=== PATIENT | male | born 1935 | race Caucasian/White ===

== ENCOUNTER 2016-07-16 22:07 | Inpatient (IN) ==
[2016-07-16] MEDS ORDERED: 0.9 % Sodium Chloride 1,000 ML IVC ONE ×2 (22:28→23:44)
[2016-07-16 22:39] LABS: Eosinophils % 0.3 %; Hemoglobin 13.3 g/dL (12.9-16.9); Immature Granulocytes % 0.7 % (0-4); Immature Platelets 4.6 % (1.1-6.1); Lymphocytes # 0.1 K/mcL (0.6-4.6); Lymphocytes % 4.8 %; Mean Corpuscular HGB Conc 33.3 g/dL (31.6-35.5); Mean Corpuscular Hemoglobin 32.4 pg (28.0-33.3); Mean Corpuscular Volume 97.3 fL (83.0-100.0); Mean Platelet Volume 10.6 fL (9.4-12.4); Monocytes % 0.3 %; Nucleated Red Blood Cells 0.7 /100 WBC (0); Red Blood Count 4.11 M/mcL (4.19-5.50); Red Cell Distribution Width 14.6 % (11.5-14.5); Segmented Neutrophils % 93.9 %
[2016-07-16 22:50] LABS: Calcium 8.5 mg/dL (8.6-10.8); Potassium 3.7 mEq/L (3.5-4.5)
[2016-07-16 23:12] LABS: Neutrophils # 2.7 K/mcL (1.6-8.9)
[2016-07-16 23:13] LABS: Large Platelets Present (Not Present); Platelet Count 77 K/mcL (140-400); Reactive Lymphocytes Present (Not Present)
[2016-07-17] MEDS ORDERED: Aspirin 81 MG TAB.CHEW PO STA (00:20)
[2016-07-17 01:51] LABS: Bilirubin,Urine Small (Negative); Blood,Urine Large (Negative); Clarity,Urine Turbid (Clear); Color,Urine Dark Yellow (Yellow); Glucose,Urine (UA) Normal (Normal); Ketones,Urine Negative (Negative); Leukocyte Esterase,Urine Large (Negative); Nitrite,Urine Negative (Negative); PH,Urine 5.5 pH Units (5.0-8.0); Protein,Urine 100 mg/dL (Neg-Trace); Specific Gravity,Urine 1.015 (1.010-1.025); Urobilinogen,Urine Normal (Normal)
[2016-07-17 01:54] LABS: Bacteria,Urine Many per hpf (None-Few); Hyaline Casts,Urine None Seen per lpf (None-Few); Squamous Epithelial Cell,Urine Many per lpf (None-Few); WBC,Urine TNTC per hpf (0-3)
[2016-07-17 02:06] LABS: RBC,Urine 15-30 per hpf (0-3)
[2016-07-17 02:07] LABS: Transitional Epi Cells,Urine Few per hpf (None-Few); Yeast,Urine Few per hpf (None Seen)
[2016-07-17] MEDS ORDERED: Levofloxacin 750 MG/150 ML 750 MG/150 ML BAG IVPB ONE (02:14)
--- NOTE | 2016-07-17 02:18 | Emergency Department Note ---
Disposition Clinical Impression: Pre-syncope Urinary tract infection Qualifiers: Urinary tract infection type: acute cystitis Hematuria presence: without hematuria Qualified Code(s): N30.00 - Acute cystitis without hematuria Hypotension Qualifiers: Hypotension type: other hypotension type Qualified Code(s): I95.89 - Other hypotension Disposition: Admitted As Inpatient Condition: Fair Referrals: Ish Scherer DO [Primary Care Provider] - Forms: ED Satisfaction Letter Weakness HPI - General Chief complaint: ED Nausea/Vomiting/Diarrhea Stated complaint: Weakness/N/V Source: patient, family, EMS Mode of arrival: private vehicle Limitations: no limitations Nursing Notes Reviewed: Yes Vital Signs Reviewed: Yes - History of Present Illness HPI Narrative: Patient is a 80-year-old male comes today for acute onset of generalized weakness. He states he is doing well today about 4 hours ago he felt very weak he fell little fluttering in his chest and felt like he wanted to pass out. He states he had some generalized achiness and chills. He also states he has had some increased dysuria and frequency. Duration: constant Location: generalized Pain Scale: 0 Associated symptoms: Reports: dysuria, fever/chills. Denies: chest pain, confusion, dark stools, diaphoresis, loss of appetite, rash - Related Data Allergies Allergy/AdvReac Type Severity Reaction Status Date / Time Penicillins [PCN] Allergy Hives Verified 03/28/15 10:27 All systems ED: reviewed and negative except as stated. Constitutional: Reports: chills, weakness. Denies: fever Gastrointestinal: Denies: abdominal pain, nausea Genitourinary: Reports: urgency, dysuria, frequency Past Medical History - Past Medical History Source: patient, old records reviewed, obtained from family, nursing notes reviewed Medical history: Reports: cancer, hyperlipidemia, hypertension, renal disease Surgical history: Reports: cancer surgery Psychiatric history: Reports: no psych history - Social History Smoking Status: Former smoker Smokeless Tobacco Status: No Alcohol use: Reports: none Drug use: Reports: none Physical Exam - General Limitations: no limitations General appearance: alert, in no apparent distress - Head Head exam: atraumatic, normocephalic, normal inspection - Eye Eye exam: Present: normal appearance, PERRL, EOMI - Expanded Eye Exam Pupils: Left: reactive - ENT ENT exam: normal exam, normal oropharynx, mucous membranes moist - Expanded ENT Exam External ear exam: Present: normal external inspection Mouth exam: Present: normal external inspection Teeth exam: Present: normal inspection Throat exam: Present: normal inspection - Neck Neck exam: Present: normal inspection, full ROM, trachea midline - Chest Chest inspection: Present: normal inspection, symmetric chest wall rise - Respiratory Respiratory exam: Present: normal lung sounds bilaterally - Cardiovascular Cardiovascular exam: Present: regular rate, normal rhythm, normal heart sounds - Abdominal Exam Abdominal exam: Present: soft, Non-Tender. Absent: tenderness, distention, guarding, rebound, rigidity - Extremities Exam Extremities exam: Present: normal inspection, full ROM. Absent: tenderness, pedal edema - Expanded Upper Extremity Exam Shoulder exam: Present: normal inspection, full ROM Arm exam: Present: normal inspection, full ROM Elbow exam: Present: normal inspection, full ROM Forearm/Wrist exam: Present: normal inspection, full ROM Hand exam: Present: normal inspection, full ROM Vascular exam: Normal: capillary refill, radial pulse - Expanded Lower Extremity Exam Hip/Pelvis exam: Present: normal inspection, full ROM Upper leg exam: Present: normal inspection, full ROM Knee exam: Present: normal inspection, full ROM Lower leg exam: Present: normal inspection, full ROM Ankle exam: Present: normal inspection, full ROM Foot/toe exam: Present: normal inspection, full ROM Neurovascular/Tendon exam: Absent: motor deficit, sensory deficit, tendon deficit - Back Exam Back exam: Present: normal inspection, full ROM. Absent: tenderness - Neurological Exam Neurological exam: Present: alert, oriented X3 - Expanded Neurological Exam Patient oriented to: Present: person, place, time Coma Scale Eye Opening: Spontaneous Coma Scale Motor Response: Obeys Commands Coma Scale Verbal Response: Oriented Coma Scale Total: 15 - Psychiatric Psychiatric exam: Present: normal affect, normal mood - Skin Skin exam: Present: warm, dry, intact, normal color Course Vital Signs Temperature 97.9 F 07/16/16 22:11 Pulse Rate 90 07/16/16 22:11 Respiratory Rate 16 07/16/16 22:11 Blood Pressure 134/67 07/16/16 22:11 O2 Sat by Pulse Oximetry 95 07/16/16 22:11 Temperature 97.9 F 07/16/16 22:11 Pulse Rate 83 07/17/16 01:17 Respiratory Rate 20 07/17/16 01:17 Blood Pressure 90/58 07/17/16 01:17 O2 Sat by Pulse Oximetry 90 L 07/17/16 01:17 Oxygen Delivery Oxygen Delivery Room Air Weakness - Differential Diagnosis Differential Diagnosis: Likely: acute myocardial infarction, hypoglycemia, rhabdomyolysis, sepsis/infection, dehydration, medication effect, metabolic - Medical Records Medical records reviewed: Yes I reviewed the patient's medical records. - Lab Data Lab results reviewed: Yes I reviewed the patient's lab results. Result diagrams: 07/16/16 22:32 07/16/16 22:32 Lab Results 07/16/16 07/16/16 07/16/16 Range/Units 22:32 22:32 22:32 WBC 2.9 L (4.3-11.1) K/mcL RBC 4.11 L (4.19-5.50) M/mcL Hgb 13.3 (12.9-16.9) g/dL Hct 40.0 (37.5-50.1) % MCV 97.3 (83.0-100.0) fL MCH 32.4 (28.0-33.3) pg MCHC 33.3 (31.6-35.5) g/dL RDW 14.6 H (11.5-14.5) % Plt Count 77 L (140-400) K/mcL MPV 10.6 (9.4-12.4) fL Immature Gran % 0.7 (0-4) % Seg Neutrophils % 93.9 % Lymphocytes % 4.8 % Monocytes % 0.3 % Eosinophils % 0.3 % Basophils % 0.0 % Neutrophils # 2.7 (1.6-8.9) K/mcL Lymphocytes # 0.1 L (0.6-4.6) K/mcL Monocytes # 0.0 (0.0-1.3) K/mcL Eosinophils # 0.0 (0.0-0.6) K/mcL Basophils # 0.0 (0.0-0.2) K/mcL Nucleated RBCs/100 WBC 0.7 H (0) /100 WBC Reactive Lymphocytes Present A (Not Present) Large Platelets Present A (Not Present) Immature Plt Fraction 4.6 (1.1-6.1) % Sodium 139 (136-145) mEq/L Potassium 3.7 (3.5-4.5) mEq/L Chloride 108 (98-109) mEq/L Carbon Dioxide 20 (19-29) mEq/L BUN 26 (8-26) mg/dL Creatinine 1.60 H (0.72-1.25) mg/dL Est GFR ( Amer) 51 L (> 60) Est GFR (Non-Af Amer) 42 L (> 60) BUN/Creatinine Ratio 16 (6-26) Glucose 116 H (70-99) mg/dL Calculated Osmolality 294 (280-300) Calcium 8.5 L (8.6-10.8) mg/dL Troponin I 0.04 H* (0-0.03) ng/mL Urine Color (Yellow) Urine Clarity (Clear) Urine pH (5.0-8.0) pH Units Ur Specific Ponder (1.010-1.025) Urine Protein (Neg-Trace) mg/dL Urine Glucose (UA) (Normal) mg/dL Urine Ketones (Negative) mg/dL Urine Blood (Negative) Urine Nitrite (Negative) Urine Bilirubin (Negative) Urine Urobilinogen (Normal) mg/dL Ur Leukocyte Esterase (Negative) Urine Microscopic RBC (0-3) per hpf Urine Microscopic WBC (0-3) per hpf Ur Squamous Epith Cells (None-Few) per lpf Ur Transition Epith Cell (None-Few) per hpf Urine Bacteria (None-Few) per hpf Hyaline Casts (None-Few) per lpf Urine Yeast (None Seen) per hpf Ur Culture Indicated? (NO) 07/17/16 07/17/16 Range/Units 01:10 01:40 WBC (4.3-11.1) K/mcL RBC (4.19-5.50) M/mcL Hgb (12.9-16.9) g/dL Hct (37.5-50.1) % MCV (83.0-100.0) fL MCH (28.0-33.3) pg MCHC (31.6-35.5) g/dL RDW (11.5-14.5) % Plt Count (140-400) K/mcL MPV (9.4-12.4) fL Immature Gran % (0-4) % Seg Neutrophils % % Lymphocytes % % Monocytes % % Eosinophils % % Basophils % % Neutrophils # (1.6-8.9) K/mcL Lymphocytes # (0.6-4.6) K/mcL Monocytes # (0.0-1.3) K/mcL Eosinophils # (0.0-0.6) K/mcL Basophils # (0.0-0.2) K/mcL Nucleated RBCs/100 WBC (0) /100 WBC Reactive Lymphocytes (Not Present) Large Platelets (Not Present) Immature Plt Fraction (1.1-6.1) % Sodium (136-145) mEq/L Potassium (3.5-4.5) mEq/L Chloride (98-109) mEq/L Carbon Dioxide (19-29) mEq/L BUN (8-26) mg/dL Creatinine (0.72-1.25) mg/dL Est GFR ( Amer) (> 60) Est GFR (Non-Af Amer) (> 60) BUN/Creatinine Ratio (6-26) Glucose (70-99) mg/dL Calculated Osmolality (280-300) Calcium (8.6-10.8) mg/dL Troponin I 0.06 H* (0-0.03) ng/mL Urine Color Dark Yellow (Yellow) Urine Clarity Turbid A (Clear) Urine pH 5.5 (5.0-8.0) pH Units Ur Specific Ponder 1.015 (1.010-1.025) Urine Protein 100 H (Neg-Trace) mg/dL Urine Glucose (UA) Normal (Normal) mg/dL Urine Ketones Negative (Negative) mg/dL Urine Blood Large H (Negative) Urine Nitrite Negative (Negative) Urine Bilirubin Small H (Negative) Urine Urobilinogen Normal (Normal) mg/dL Ur Leukocyte Esterase Large H (Negative) Urine Microscopic RBC 15-30 H (0-3) per hpf Urine Microscopic WBC TNTC H (0-3) per hpf Ur Squamous Epith Cells Many H (None-Few) per lpf Ur Transition Epith Cell Few (None-Few) per hpf Urine Bacteria Many H (None-Few) per hpf Hyaline Casts None Seen (None-Few) per lpf Urine Yeast Few H (None Seen) per hpf Ur Culture Indicated? YES A (NO) - Radiology Data Radiology results reviewed: Yes I reviewed the patient's radiology results. - EKG Data EKG shows normal: sinus rhythm Rate: normal Rhythm: NSR Interpretation: nonspecific ST-T wave changes
[2016-07-17] MEDS ORDERED: 0.9 % Sodium Chloride 1,000 ML IVC ONE ×2 (02:28→08:07)
[2016-07-17] MEDS ORDERED: Meropenem 500 MG in 0.9 % Sodium Chloride Mini Bag 100 ML IVPB STA (02:30)
--- NOTE | 2016-07-17 03:21 | Internal Med History&Physical ---
<Max Flanagan - Last Filed: 07/17/16 04:36> Date of Encounter: 07/17/16 Time of Encounter: 03:20 Assessment and Plan (1) Sepsis Current visit: Yes Status: Acute Patient had BP 90s/50s, WBC of 2.9, lactate of 2.3, urine positive for leukocyte esterase and many bacteria. Source of infection likely from UTI. Patient had one episode of burning with urination today. He denies abdominal pain, flank pain upon physical exam. CXR showed no acute abnormalities. Influenza swab negative DuoNeb q6HR PRN for wheezing Meropenem 500mg Q8HR IVF 125 ml/hr Trend lactate blood cultures x2 pending urine culture pending Qualifiers: Sepsis type: sepsis due to unspecified organism Qualified Code(s): A41.9 - Sepsis, unspecified organism (2) Urinary tract infection Current visit: Yes Status: Acute plan as above Qualifiers: Urinary tract infection type: site unspecified Hematuria presence: without hematuria Qualified Code(s): N39.0 - Urinary tract infection, site not specified (3) JOSEY (acute kidney injury) Current visit: Yes Status: Acute Patient's Creatinine was 1.6, his baseline is around 1. Etiology likely due to sepsis. Continue with IVF Avoid nephrotoxic agents. (4) CKD (chronic kidney disease), stage III Current visit: Yes Status: Chronic Patient has CKD III by history. Continue to monitor. (5) Hyperlipidemia Current visit: Yes Status: Chronic re start lipitor once home med list is confirmed with pharmacy Qualifiers: Hyperlipidemia type: unspecified Qualified Code(s): E78.5 - Hyperlipidemia , unspecified (6) History of colon cancer Current visit: Yes Status: Acute (7) Hypotension Current visit: Yes Status: Acute IVF, hold atenolol. Qualifiers: Hypotension type: other hypotension type Qualified Code(s): I95.89 - Other hypotension (8) Elevated troponin Current visit: Yes Status: Acute likely demand in setting of sepsis- patient denies any chest pain. Trend as needed. (9) DVT prophylaxis Current visit: Yes Status: Acute EPCDs Internal Medicine - H&P: HPI Chief complaint: weakness and chills. Admitted From: Home Plans for Post Hospital Care: Home History of present illness: PCP: Dr. Scherer Mr. Cedeno is a 80 year old male with PMHx of CKD III, HLD, history of colon cancer-status post bowel resection, HTN, COPD, osteoarthritis. Patient came to the ED with son and with chief complaint of chill and weakness that started around 2:30 pm this afternoon. He also stated that he felt extremely weak and couldn't get up out of his chair. He had one episode of non bloody emesis with dry heaving. He denies any recent sick contacts, denies recent travel history. He has a baseline productive cough with mucousy phlegm production. He has not noticed increased sputum production recently. He denies any flank or back pain, denies being nauseous currently, denies chest pain. Social Hx: lives athome with his . He used to smoke for about 46 years, 1PPD. He quit smoking in 2001. He denies alcohol and illicit drug use. Family Hx: his brother had stomach cancer, mother had breast cancer. Past Med Surg Social Fam HX - Past Medical History Medical history: cancer, hyperlipidemia, hypertension, renal disease Psychiatric history: no psych history - Past Surgical History Surgical History: cancer surgery - Social History Smoking Status: Former smoker Smokeless Tobacco Status: No Alcohol use: none Drug use: none Internal Medicine - H&P: Meds Atenolol 07/17/16 [History] Flomax 07/17/16 [History] Lipitor 07/17/16 [History] Allergies Penicillins [PCN] Allergy (Verified 03/28/15 10:27) Hives All Systems PM: A 10-system review of systems was performed and is negative for pertinent findings except as documented above in the HPI. - Constitutional Constitutional: chills, weakness, no fever(s) - EENT Eyes: no blurry vision - Cardiovascular Cardiovascular ROS IM: no chest pain, no syncope - Respiratory Respiratory: cough, no hemoptysis - Gastrointestinal Gastrointestinal: vomiting, no abdominal pain, no hematemesis, no hematochezia, no melena - Genitourinary Genitourinary ROS male: dysuria, urinary incontinence, urinary urgency, no hematuria - Neurological Neurological ROS: weakness, no abnormal movements - Constitutional Vitals: Temp Pulse Resp BP Pulse Ox 97.9 F 80 16 86/53 93 L 07/16/16 22:11 07/17/16 02:24 07/17/16 02:24 07/17/16 02:24 07/17/16 02:24 General appearance: Present: A&O X 3, pleasant, no acute distress, answers questions appropriately - Head Head exam: Present: atraumatic, normocephalic - Respiratory Respiratory exam: Present: rales, rhonchi, wheezes (expiratory wheezing noted. decreased breath sounds on lower lobe bilaterally.) - Cardiovascular Cardiovascular exam: Present: distant heart sounds - GI/Abdominal GI/Abdominal exam: Present: firm, normal bowel sounds. Absent: tenderness Additional comments: scar from bowel resection noted on midline of abdomen. - Extremities Exam Extremities exam: Absent: cyanotic, pedal edema - Neurological Exam Neurological exam: Present: alert, oriented X3, no focal deficits - Psychiatric Psychiatric exam: Present: normal affect, normal mood. Absent: agitated, anxious Internal Med - H&P Results - Labs CBC & Chem 7: 07/16/16 22:32 07/16/16 22:32 <Favian Arana - Last Filed: 07/17/16 05:18> Date of Encounter: 07/17/16 Internal Medicine - H&P: HPI History of present illness: Mr. Cedneo is a 80 year old male All Systems PM: A 10-system review of systems was performed and is negative for pertinent findings except as documented above in the HPI. - Constitutional Vitals: Temp Pulse Resp BP Pulse Ox 98.0 F 80 17 95/53 90 L 07/17/16 04:28 07/17/16 04:28 07/17/16 04:28 07/17/16 04:28 07/17/16 04:28 Internal Med - H&P Results - Labs CBC & Chem 7: 07/16/16 22:32 07/16/16 22:32 - Attending Attestation I examined this patient and my medical decision-making was reviewed with the INSIDE SALES DIRECTOR/PA/Advanced Practice Nurse/Resident Physician. I agree with the documented findings, disposition and treatment plan as described except to the extent set forth below. I have personally evaluated the pt and discussed the details with the Rinkman/ resident. 80 Y/M presented with chills, weakness, increased urinary frequency. cough with discolored sputum. some shortness of breath. Abnormal UA. Normal CXR. Hypotensive. Had 3 litres of normal saline bolus in the ER and is on normal saline infusion. Urine and blood cultures pending. Pt apparently has allergies to penicillin, with questionable allergy to cefalosporins. Pt was given meropenem in the ER - continue meropenem 500 mg Q8H. Monitor lactate and BP. Dx: Severe sepsis / septic shock; UTI; acute on chronic renal failure
[2016-07-17] MEDS ORDERED: Naloxone 0.4 MG/ML INJ IVP PRN (03:44)
[2016-07-17] MEDS ORDERED: Ondansetron 4 MG/2 ML VIAL IVP PRN (03:44)
[2016-07-17] MEDS ORDERED: Acetaminophen 325 MG TABLET PO PRN (03:44)
[2016-07-17] MEDS ORDERED: 0.9 % Sodium Chloride w KCl 20 MEQ/1,000 ML MLS IVC SCH (03:47)
[2016-07-17] MEDS ORDERED: 0.9 % Sodium Chloride 500 ML IVC ONE (04:59)
[2016-07-17 06:18] LABS: Basophils % 0.1 %; Lymphocytes % 2.2 %
[2016-07-17 06:20] LABS: Hematocrit 34.5 % (37.5-50.1); Hemoglobin 11.3 g/dL (12.9-16.9); Immature Platelets 6.8 % (1.1-6.1); Lymphocytes # 0.4 K/mcL (0.6-4.6); Mean Corpuscular HGB Conc 32.8 g/dL (31.6-35.5); Mean Corpuscular Hemoglobin 32.1 pg (28.0-33.3); Mean Platelet Volume 10.3 fL (9.4-12.4); Monocytes # 0.8 K/mcL (0.0-1.3); Neutrophils # 15.3 K/mcL (1.6-8.9); Red Blood Count 3.52 M/mcL (4.19-5.50); Segmented Neutrophils % 91.7 %
[2016-07-17 06:33] LABS: Calcium 7.8 mg/dL (8.6-10.8); Potassium 4.1 mEq/L (3.5-4.5)
[2016-07-17 06:41] LABS: Platelet Count 76 K/mcL (140-400)
[2016-07-17 06:42] LABS: Reactive Lymphocytes Present (Not Present)
[2016-07-17] MEDS ORDERED: *HR* Heparin 5,000 UNIT/ML VIAL SQ SCH (07:00)
[2016-07-17] MEDS ORDERED: 0.9 % Sodium Chloride 1,000 ML IVC SCH (07:45)
[2016-07-17] MEDS ORDERED: Lidocaine -MPF 1% 5 ML AMPUL INFILT ONE (08:03)
--- NOTE | 2016-07-17 08:14 | Internal Med Progress Note ---
Date of Encounter: 07/17/16 Time of Encounter: 07:35 - Assessment and plan (1) Severe sepsis Current Visit: Yes Status: Acute Assessment and plan: Secondary to UTI Patient now with leukocytois, still low blood pressures, 87/46 at time of review but with MAP of 60 No tachycardia(however, patient was on atenolol) s/p 3.5 L IVF Severe sepsis with JOSEY on CKD, lactic acidosis and troponin elevation CXR is clear Source of sepsis for now is Complicated UTI, suspected pyelonephritis On Meropenem (due to penicillin allergy and severity of sepsis), continue same Continue IVF hydration, give another 1L stat, then continue maintenance at 150cc /hr Place Feng catheter Strict intake/output monitoring PICC line, for ease of hydration and possible need for pressors Follow blood and urine cultures Low threshold to start pressors Obtain Abdomen and Pelvis CT stat without contrast Obtain ECHO to assess EF Patient is high risk for decompensation to septic shock and multi-organ failure He is full code (2) Gram negative sepsis Current Visit: Yes Status: Acute (3) Urinary tract infection Current Visit: Yes Status: Acute Assessment and plan: As above, follow blood and urine cultures Qualifiers: Urinary tract infection type: site unspecified Hematuria presence: without hematuria Qualified Code(s): N39.0 - Urinary tract infection, site not specified (4) Lactic acidosis Current Visit: Yes Status: Acute Assessment and plan: Improving (5) Acute kidney injury superimposed on CKD Current Visit: Yes Status: Acute Assessment and plan: Patient with hx of CKD III, BPH now with JOSEY on CKD Avoid nephrotoxins IVF hydration Follow renal imaging (6) BPH (benign prostatic hyperplasia) Current Visit: Yes Status: Chronic Assessment and plan: Hold Tamsulosin for now, may restart when BP is better Qualifiers: Prostatic enlargement morphology: unspecified morphology Lower urinary tract symptom presence: presence of symptoms unspecified Qualified Code(s): N40.0 - Benign prostatic hyperplasia without lower urinary tract symptoms (7) Hyperlipidemia Current Visit: Yes Status: Chronic Assessment and plan: Resume statin Qualifiers: Hyperlipidemia type: unspecified Qualified Code(s): E78.5 - Hyperlipidemia , unspecified - Subjective Interval history: 80 Y/O M with PMH of HTN, BPH, HLD Admitted for management of severe sepsis secondary to acute pyelonephritis, JOSEY , Lactic acidosis He is seen at bedside Reports feeling "just tired" He was in his usual state of health till two days prior to presentation when he developed rigors, chills, urinary frequency and dysuria He also reported mild dry cough - Constitutional Vitals: Temp Pulse Resp BP Pulse Ox 97.5 F L 65 22 87/46 95 07/17/16 07:34 07/17/16 07:34 07/17/16 07:34 07/17/16 07:34 07/17/16 07:34 General appearance: Present: A&O X 3, pleasant, no acute distress, answers questions appropriately - Head Head exam: Present: atraumatic, normocephalic Additional comments: Right lower lip melanotic spot(patient states its a birthmark) - Eye Eye exam: Present: PERRL, conjuntiva pink, sclera anicteric Pupils: Present: PERRL - ENT ENT exam: Present: mucous membranes dry - Neck Neck exam general surgery: Present: supple, trachea midline. Absent: lymphadenopathy - Respiratory Respiratory exam: Present: CTAB. Absent: rales, rhonchi, wheezes, tachypnea - Cardiovascular Cardiovascular exam: Present: RRR, +S1, +S2. Absent: diastolic murmur, gallop, rubs, systolic murmur - GI/Abdominal GI/Abdominal exam: Present: normal bowel sounds, soft, no peritoneal signs. Absent: distended, tenderness - Extremities Exam Extremities exam: Present: warm, radial pulses palpable and symetrical. Absent : calf tenderness, cyanotic, pedal edema - Back Exam Back exam: Present: normal inspection. Absent: CVA tenderness (L), CVA tenderness (R) - Neurological Exam Neurological exam: Present: CN II-XII intact, oriented X3, no focal deficits. Absent: pronater drift, facial droop, speech deficit - Skin Skin exam: Present: dry, intact Internal Medicine: Result - Labs CBC & Chem 7: 07/17/16 06:06 07/17/16 06:06 Labs: Short CBC 07/17/16 Range/Units 06:06 WBC 16.7 H D (4.3-11.1) K/mcL Hgb 11.3 L D (12.9-16.9) g/dL Hct 34.5 L (37.5-50.1) % Plt Count 76 L (140-400) K/mcL Neutrophils # 15.3 H (1.6-8.9) K/mcL BMP 07/17/16 06:06 Sodium 139 Potassium 4.1 Chloride 111 H Carbon Dioxide 18 L BUN 30 H Creatinine 2.39 H Glucose 149 H Calcium 7.8 L Consult Discharge Plan - Plan Referrals: Ish Scherer DO [Primary Care Provider] -
[2016-07-17] MEDS: Ipratropium/Albuterol Neb 3 ML IH PRN (10:30)
[2016-07-17] MEDS: Meropenem 500 MG in 0.9 % Sodium Chloride Mini Bag 100 ML IVPB SCH ×2 (11:45→19:35)
[2016-07-17 15:28] LABS: Acinetobacter baumannii by PCR Not Detected (Not Detect); Candida albicans by PCR Not Detected (Not Detect); Candida glabrata by PCR Not Detected (Not Detect); Candida krusei by PCR Not Detected (Not Detect); Candida parapsilosis by PCR Not Detected (Not Detect); Candida tropicalis by PCR Not Detected (Not Detect); Enterococcus by PCR Not Detected (Not Detect); Escherichia coli by PCR ***DETECTED*** (Not Detect); Klebsiella oxytoca by PCR Not Detected (Not Detect); Klebsiella pneumoniae by PCR Not Detected (Not Detect); Pseudomonas aeruginosa by PCR Not Detected (Not Detect); Serratia marcescens by PCR Not Detected (Not Detect); Staphylococcus aureus by PCR Not Detected (Not Detect); Streptococcus agalactiae(B)PCR Not Detected (Not Detect); Streptococcus by PCR Not Detected (Not Detect); Streptococcus pneumoniae PCR Not Detected (Not Detect); Streptococcus pyogenes (A) PCR Not Detected (Not Detect); blaKPC Carbapenem-Resist Gene Not Detected (Not Detect)
--- NOTE | 2016-07-17 16:14 | Electrocardiograph Report ---
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
[2016-07-17] MEDS: 0.9 % Sodium Chloride 1,000 ML IVC SCH (17:15)
[2016-07-18] MEDS: Meropenem 500 MG in 0.9 % Sodium Chloride Mini Bag 100 ML IVPB SCH (05:17)
[2016-07-18 05:52] LABS: Hematocrit 32.1 % (37.5-50.1); Hemoglobin 10.6 g/dL (12.9-16.9); Mean Corpuscular Hemoglobin 32.9 pg (28.0-33.3); Mean Corpuscular Volume 99.7 fL (83.0-100.0); Mean Platelet Volume 11.8 fL (9.4-12.4); Red Blood Count 3.22 M/mcL (4.19-5.50); Red Cell Distribution Width 15.3 % (11.5-14.5)
[2016-07-18 05:54] LABS: Albumin 2.4 g/dL (3.5-5.0); Albumin/Globulin Ratio 0.8 (1.1-2.2); Calcium 7.2 mg/dL (8.6-10.8); Globulin 2.9 g/dL (2.4-3.5); Potassium 4.4 mEq/L (3.5-4.5); Total Protein 5.3 g/dL (6.0-8.3)
[2016-07-18 05:57] LABS: Platelet Count 66 K/mcL (140-400)
[2016-07-18 07:04] LABS: Lymphocytes # 3.1 K/mcL (0.6-4.6); Monocytes # 2.6 K/mcL (0.0-1.3); Neutrophils # 20.1 K/mcL (1.6-8.9); Platelet Estimate Decreased (Normal)
[2016-07-18] MEDS ORDERED: 0.9 % Sodium Chloride 1,000 ML IVC ONE (08:02)
[2016-07-18] MEDS: 0.9 % Sodium Chloride 1,000 ML IVC SCH (08:08)
--- NOTE | 2016-07-18 08:24 | Nephrology Consult Note ---
Date of Encounter: 07/18/16 Time of Encounter: 08:22 Assessment and Plan (1) Acute kidney injury superimposed on CKD Current Visit: Yes Status: Acute The patient has acute kidney injury superimposed on stage III chronic kidney disease in the setting of gram-negative rods urinary tract infection and sepsis with bacteremia. He presented with hypotension. I would continue the IV fluids as well as appropriate antibiotics. I was expecting his renal function to start to improve within the next 1-2 days. We will initiate an evaluation for his underlying chronic kidney disease while he is here in the hospital. (2) Gram negative sepsis Current Visit: Yes Status: Acute (3) History of colon cancer Current Visit: Yes Status: Acute (4) Hypotension Current Visit: Yes Status: Acute Qualifiers: Hypotension type: other hypotension type Qualified Code(s): I95.89 - Other hypotension (5) BPH (benign prostatic hyperplasia) Current Visit: Yes Status: Chronic Qualifiers: Prostatic enlargement morphology: unspecified morphology Lower urinary tract symptom presence: presence of symptoms unspecified Qualified Code(s): N40.0 - Benign prostatic hyperplasia without lower urinary tract symptoms History of Present Illness - History of Present Illness This is an 80-year-old male who presented to emergency room with complaints of chills and weakness and one or 2 episodes of dysuria. Patient is noted to be hypotensive and febrile. His urinalysis suggested a urinary tract infection. Blood pressure was recorded as 83/48. He was noted to have an elevation in his serum creatinine. He subsequently admitted to the hospital. Urine culture and blood cultures are growing gram-negative rods. He is currently on antibiotics. He received IV fluids. His blood pressure is improved. Feng catheter is currently in place. Patient does have a history of BPH and sees Dr. Palmer annually. Patient says he has frequent urination at home he is not sure if he completely empties his bladder or not. Renal ultrasound here in the hospital showed normal size kidneys and no evidence of hydronephrosis. The patient reports that he recently was told that he has stage III chronic kidney disease. Review of previous lab values shows a baseline creatinine of 1.3-1.4. Today his creatinine has continued to increase and currently is up to 2.45. Past Med Surg Social Fam HX - Past Medical History Medical history: cancer, hyperlipidemia, hypertension, renal disease Psychiatric history: no psych history - Past Surgical History Surgical History: cancer surgery - Social History Smoking Status: Former smoker Smokeless Tobacco Status: No Alcohol use: none Drug use: none Medications and Allergies Atenolol [Tenormin] 50 mg PO DAILY 07/17/16 [History] Atorvastatin [Lipitor] 10 mg PO HS 07/17/16 [History] Tamsulosin HCl [Flomax] 0.4 mg PO DAILY 07/17/16 [History] Allergies Penicillins [PCN] Allergy (Verified 07/17/16 07:28) Hives Review of Systems Constitutional: as per HPI, fever(s), weakness Eyes: bilateral: blurred vision (patient denies), diplopia (patient denies) Nose, mouth and throat: no dizziness, no headache(s) Cardiovascular: dyspnea on exertion Respiratory: dyspnea on exertion, wheezing Gastrointestinal: no abdominal pain, no change in bowel habits Genitourinary Male: difficulty urinating, dysuria Musculoskeletal: no muscle weakness, no numbness Integumentary: no hirsutism, no striae Neurological: as per HPI Psychiatric: no depression, no difficulty concentrating Endocrine: as per HPI Hematologic/Lymphatic: no easy bruising, no lymphadenopathy Exam - Vital Signs Vital signs: Initial Vital Signs Temp Pulse Resp BP Pulse Ox 97.9 F 90 16 134/67 95 07/16/16 22:11 07/16/16 22:11 07/16/16 22:11 07/16/16 22:11 07/16/16 22:11 Vital Signs - Last 8 Hours Temp Pulse Resp BP Pulse Ox 07/18/16 07:32 98.2 F 69 20 128/51 95 Intake and Output 07/17/16 07/18/16 07/18/16 23:59 07:59 15:59 Intake Total 200 / 200 1100 / 1100 Output Total 300 / 300 Balance -100 / -100 1100 / 1100 Intake: IV Fluids 100 / 100 1100 / 1100 0.9 % Sodium Chloride 1, 1000 / 1000 000 ML @ 100 mls/hr IVC . Q10H [facility] Rx#:[id number] Merrem 500 MG In 0.9 % 100 / 100 100 / 100 Sodium Chloride (Mini-Bag +) 100 ML @ 200 mls/hr IVPB Q8H [facility] Rx#: [id number] Oral 100 / 100 Output: Catheter 300 / 300 Other: Meal Dinner Percent of Meal Consumed 85% - General Appearance Exam: Patient is alert and oriented. He is in no acute distress. Neck is supple. Lungs exhibit bilateral expiratory wheezing. Heart regular rate and rhythm. Abdomen shows normal bowel sounds abrasion masses or megaly or tenderness. Extremities show no peripheral edema. A Feng catheter is in place. He is receiving maintenance IV fluids as well as a fluid bolus currently. Results - Lab Results 07/18/16 05:24 07/18/16 05:24 Most recent lab results Calcium 7.2 mg/dL (8.6-10.8) L 07/18/16 05:24 Consult Discharge Plan - Plan Referrals: Ish Scherer DO [Primary Care Provider] -
--- NOTE | 2016-07-18 09:12 | Internal Med Progress Note ---
Date of Encounter: 07/18/16 Time of Encounter: 09:00 - Assessment and plan (1) Severe sepsis Current Visit: Yes Status: Acute Assessment and plan: Secondary to acute pyelonephritis, gram negative septicemia Patient with leukocytois, blood pressure has improved No tachycardia(however, patient was on atenolol) Severe sepsis with JOSEY on CKD Lactate is ow normal CXR is clear Source of sepsis for now is Complicated UTI, suspected pyelonephritis On Meropenem (due to penicillin allergy and severity of sepsis), continue same Continue IVF hydration, give another 1L stat, then continue maintenance at 100cc /hr Strict intake/output monitoring Follow blood and urine cultures Abd CT with bilateral nephrolithiasis, pyelonephritis, renal cysts, BPH, no abscesses Follow ECHO Patient is high risk for decompensation to septic shock and multi-organ failure He is full code (2) Gram negative sepsis Current Visit: Yes Status: Acute Assessment and plan: As above (3) Urinary tract infection Current Visit: Yes Status: Acute Assessment and plan: As above, follow blood and urine cultures Qualifiers: Urinary tract infection type: site unspecified Hematuria presence: without hematuria Qualified Code(s): N39.0 - Urinary tract infection, site not specified (4) Lactic acidosis Current Visit: Yes Status: Acute Assessment and plan: Improving (5) Acute kidney injury superimposed on CKD Current Visit: Yes Status: Acute Assessment and plan: Patient with hx of CKD III, BPH now with JOSEY on CKD Avoid nephrotoxins Renal consult Continue IVF (6) BPH (benign prostatic hyperplasia) Current Visit: Yes Status: Chronic Assessment and plan: Hold Tamsulosin for now, may restart when BP is better Qualifiers: Prostatic enlargement morphology: unspecified morphology Lower urinary tract symptom presence: presence of symptoms unspecified Qualified Code(s): N40.0 - Benign prostatic hyperplasia without lower urinary tract symptoms (7) Hyperlipidemia Current Visit: Yes Status: Chronic Assessment and plan: Resume statin Qualifiers: Hyperlipidemia type: unspecified Qualified Code(s): E78.5 - Hyperlipidemia , unspecified - Subjective Interval history: 80 Y/O M with PMH of HTN, BPH, HLD Admitted for management of severe sepsis secondary to acute pyelonephritis, JOSEY , Lactic acidosis He is seen at bedside He has no new complains Labs reviewed showed worsening leukocytosis and renal function Patient has been afebrile and his BP has improved I have consulted nephrology for his JOSEY on CKD I will give an additional bolus today ECHO has been done, report is pending Observe respiratory status closely for fluid overload Strict intake/output monitoring - Constitutional Vitals: Temp Pulse Resp BP Pulse Ox 98.2 F 69 20 128/51 95 07/18/16 07:32 07/18/16 07:32 07/18/16 07:32 07/18/16 07:32 07/18/16 08:17 General appearance: Present: A&O X 3, pleasant, no acute distress, answers questions appropriately - Head Head exam: Present: atraumatic Additional comments: right upper lip melonocytic lesion-per patient, its his maday and hasn't changed in years - Eye Eye exam: Present: PERRL, conjuntiva pink, sclera anicteric - ENT ENT exam: Present: mucous membranes moist - Neck Neck exam general surgery: Present: supple, trachea midline. Absent: lymphadenopathy - Respiratory Respiratory exam: Present: CTAB. Absent: accessory muscle use, rales, rhonchi, wheezes - Cardiovascular Cardiovascular exam: Present: RRR, +S1, +S2. Absent: diastolic murmur, gallop, rubs, systolic murmur - GI/Abdominal GI/Abdominal exam: Present: normal bowel sounds, soft, no peritoneal signs. Absent: distended, tenderness - Additional comments: Feng catheter now draining clear urine - Extremities Exam Extremities exam: Present: warm, radial pulses palpable and symetrical. Absent : calf tenderness, cyanotic, pedal edema - Neurological Exam Neurological exam: Present: CN II-XII intact, oriented X3, no focal deficits. Absent: pronater drift, facial droop, speech deficit - Skin Skin exam: Present: dry, intact Internal Medicine: Result - Labs CBC & Chem 7: 07/18/16 05:24 07/18/16 05:24 Labs: Short CBC 07/18/16 Range/Units 05:24 WBC 25.7 H D (4.3-11.1) K/mcL Hgb 10.6 L (12.9-16.9) g/dL Hct 32.1 L (37.5-50.1) % Plt Count 66 L (140-400) K/mcL Neutrophils # 20.1 H (1.6-8.9) K/mcL BMP 07/18/16 05:24 Sodium 142 Potassium 4.4 Chloride 113 H Carbon Dioxide 20 BUN 45 H D Creatinine 2.45 H Glucose 90 Calcium 7.2 L Liver Function 07/18/16 Range/Units 05:24 Total Bilirubin 1.0 (0.2-1.2) mg/dL AST 70 H (5-34) Units/L ALT 92 H (0-55) Units/L Alkaline Phosphatase 81 (38-126) Units/L Albumin 2.4 L (3.5-5.0) g/dL - Impressions Impressions Abdomen/Pelvis CT 07/17/16 07:56 IMPRESSION: 1. Bilateral nephrolithiasis. No ureteral stones or hydronephrosis 2. Perivesical stranding suggests cystitis. Bilateral perinephric stranding may indicate pyelonephritis 3. Bilateral renal cysts 4. Colonic diverticulosis. Status post rectosigmoid resection 5. 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 Prostatic enlargement 7. Cholelithiasis D/ / Nima Logan MD / Nima Logan MD Interpreting Provider: Nima Logan MD Retroperitoneum Ultrasound 07/17/16 14:00 IMPRESSION: Bilateral nephrolithiasis. The hyperdense right renal cyst is imaged at 2.9 cm. Otherwise unremarkable bilateral renal ultrasound. Decompression of the urinary bladder by Feng catheter limits evaluation. D/ / 07/17/2016 16:03:37 Ronny Weber MD / bcarter Interpreting Provider: Ronny Weber MD - VTE Documentation of Mechanical Device: Intermittent pneumatic compression device Consult Discharge Plan - Plan Referrals: Ish Scherer DO [Primary Care Provider] -
[2016-07-18] MEDS ORDERED: Ipratropium/Albuterol Neb 3 ML IH ONE (09:25)
--- NOTE | 2016-07-18 10:12 | ECHO - Doppler Report ---
Echocardiogram Name: Angel Cedeno Date of Study: 07/17/2016 Date: 1935 Ht: 74.0 in Medical Record#: [id number] Age: 80 Wt: 229.0 lb Gender: Male BSA: 2.3 Order #: [id number] Location: [facility] Room #: [id number] Reading Physician: Shay Garces MD, [facility] Package Lift Operator: Juli Blake RDCS Ordering Physician: Deniz Lim MD Primary Physician: Diane Scherer DO Indications: Assess EF, Sepsis Impressions: Technically sub-optimal due to clinical status (patient supine, unable to properly position for the exam). Normal left ventricular size and systolic function, LVEF 55%. Normal right ventricular size and function. No significant valvular dysfunction. No evidence of pulmonary hypertension. Left Ventricular Wall Motion: Rest Echo Findings All wall segments showed normal motion. Findings: Study Quality * Technically sub-optimal due to clinical status (patient supine, unable to properly position for the exam). ECG Findings * Normal sinus rhythm. Left Ventricle * Normal left ventricular size and systolic function, LVEF 55%. * Normal LV wall thickness. * Indeterminate diastolic function. Right Ventricle * Normal right ventricular size and function. Left Atrium * Normal left atrial size. Right Atrium * Normal right atrial size. Aorta * Normally sized aortic root. Pericardium * The pericardium appears normal. IVC * The IVC is mildly dilated. Aortic Valve * Aortic valve not well visualized. Appears moderately calcified. * No aortic stenosis. * No aortic regurgitation. Mitral Valve * Normal mitral valve structure. * No mitral stenosis. * Trace mitral regurgitation. Tricuspid Valve * Tricuspid valve not well visualized. * No tricuspid stenosis. * Trace tricuspid regurgitation. * No evidence of pulmonary hypertension. Pulmonic Valve * Pulmonic valve not well visualized. * No pulmonic stenosis. * No pulmonic regurgitation. History Hypertension Hypercholesteremia Measurements: BP: 120/ 66 2D Normal Values RVIDd: 3.73 cm IVSd: .75 cm 0.6 - 1.0 cm LVIDd: 5.48 cm 3.7 - 5.6 cm LVPWd: .95 cm 0.6 - 1.1 cm LVIDs: 3.85 cm 1.5 - 3.6 cm AO: 3.60 cm < 4.0 cm %FS: 29.70 cm >25 % LA volume: 62 Mitral Valve Peak E:.88 m/sec Peak A:.83 m/sec E/A Ratio:1.1 Tricuspid Valve TV Regurg Peak Grad: 14.00mmHg TV Regurg Peak Waylon: 1.87m/sec Updated by Shay Garces MD, [facility] on 07/18/2016 10:05:56 AM electronically signed on 07/18/2016 10:07:41 AM with status of Final Wall Motion [place]: 1=Normal, 2=Hypokinesis, 3=Akinesis, 4=Dyskinesis, 5=Aneurysmal, 6=Hyperkinetic, X=Not Visualized (Blank)=Missing
[2016-07-18] MEDS: Meropenem 1,000 MG in 0.9 % Sodium Chloride Mini Bag 100 ML IVPB SCH (17:01)
[2016-07-18] MEDS ORDERED: 0.9 % Sodium Chloride 1,000 ML IVC SCH (17:47)
[2016-07-19] MEDS: Ipratropium/Albuterol Neb 3 ML IH PRN ×2 (02:40→10:52)
[2016-07-19 03:16] LABS: Hemoglobin 11.6 g/dL (12.9-16.9); Mean Corpuscular Hemoglobin 32.9 pg (28.0-33.3); Red Blood Count 3.53 M/mcL (4.19-5.50)
[2016-07-19 03:17] LABS: Hematocrit 34.9 % (37.5-50.1); Mean Corpuscular HGB Conc 33.2 g/dL (31.6-35.5); Mean Corpuscular Volume 98.9 fL (83.0-100.0); Mean Platelet Volume 11.4 fL (9.4-12.4); Red Cell Distribution Width 15.7 % (11.5-14.5)
[2016-07-19 03:21] LABS: Platelet Count 80 K/mcL (140-400)
[2016-07-19 03:40] LABS: Albumin 2.6 g/dL (3.5-5.0); Albumin/Globulin Ratio 0.8 (1.1-2.2); Bilirubin,Total 0.7 mg/dL (0.2-1.2); Calcium 7.9 mg/dL (8.6-10.8); Globulin 3.2 g/dL (2.4-3.5); Potassium 4.4 mEq/L (3.5-4.5); Total Protein 5.8 g/dL (6.0-8.3)
[2016-07-19 03:53] LABS: Lymphocytes # 2.1 K/mcL (0.6-4.6); Monocytes # 0.5 K/mcL (0.0-1.3); Neutrophils # 23.3 K/mcL (1.6-8.9)
[2016-07-19 03:54] LABS: Platelet Estimate Decreased (Normal)
[2016-07-19] MEDS: Meropenem 1,000 MG in 0.9 % Sodium Chloride Mini Bag 100 ML IVPB SCH ×2 (05:41→17:19)
--- NOTE | 2016-07-19 07:40 | Nephrology Progress Note ---
Date of Encounter: 07/19/16 Time of Encounter: 07:38 - Assessment and Plan (1) Acute kidney injury superimposed on CKD Current Visit: Yes Status: Acute Patient has acute kidney injury in the setting of Escherichia coli urinary tract infection as well as Escherichia coli that uremia and sepsis. Acute kidney injury is improving. Patient continues with Feng catheter drainage. I would suggest having neurology see the patient so that once the Feng is removed the patient to be monitored closely to make sure he is emptying his bladder okay given that he does have a history of BPH. The renal ultrasound did not show any hydronephrosis. (2) Gram negative sepsis Current Visit: Yes Status: Acute (3) History of colon cancer Current Visit: Yes Status: Acute (4) Hypotension Current Visit: Yes Status: Acute Qualifiers: Hypotension type: other hypotension type Qualified Code(s): I95.89 - Other hypotension (5) BPH (benign prostatic hyperplasia) Current Visit: Yes Status: Chronic Qualifiers: Prostatic enlargement morphology: unspecified morphology Lower urinary tract symptom presence: presence of symptoms unspecified Qualified Code(s): N40.0 - Benign prostatic hyperplasia without lower urinary tract symptoms Subjective Interval history: Patient reports no new complaints. He says he is feeling better overall. Cultures are growing Escherichia coli. Renal function is starting to improve. Urine output is adequate. Objective - Vital Signs Vital signs: Vital Signs Temp Pulse Resp BP Pulse Ox 07/19/16 07:25 97.4 F L 59 18 133/72 97 07/19/16 03:50 97.8 F 70 18 129/60 92 L 07/19/16 02:40 18 93 L 07/18/16 23:52 98.1 F 64 20 148/77 95 07/18/16 20:55 97.9 F 68 20 149/62 93 L 07/18/16 16:15 97.5 F L 62 18 116/64 95 07/18/16 10:51 98 F 72 18 128/70 97 07/18/16 08:17 95 Intake and Output 07/18/16 07/18/16 07/19/16 15:59 23:59 07:59 Intake Total 240 / 240 100 / 100 Output Total 400 / 400 750 / 750 Balance -160 / -160 -650 / -650 Intake: IV Fluids 100 / 100 Merrem 1,000 MG In 0.9 % 100 / 100 Sodium Chloride (Mini-Bag +) 100 ML @ 200 mls/hr IVPB Q12HR [facility] Rx#: [id number] Oral 240 / 240 Output: Urine 400 / 400 Catheter 750 / 750 Other: Meal Lunch Percent of Meal Consumed 50% - General Appearance Exam: Patient is alert and oriented. In no acute distress. Lungs somewhat diminished breath sounds otherwise clear. Heart regular rate and rhythm. Abdomen is benign. There is no peripheral edema. Feng catheter is in place draining myrna colored urine. - Lab 07/19/16 03:08 07/19/16 03:08 Most recent lab results Calcium 7.9 mg/dL (8.6-10.8) L 07/19/16 03:08 Phosphorus 3.6 mg/dL (2.3-4.7) 07/18/16 09:10 - VTE Documentation of Mechanical Device: Intermittent pneumatic compression device Consult Discharge Plan - Plan Referrals: Ish Scherer DO [Primary Care Provider] -
--- NOTE | 2016-07-19 09:11 | Urology - Consult Note ---
Date of Encounter: 07/19/16 Time of Encounter: 09:09 - Assessment and Plan (1) Urinary tract infection Current Visit: Yes Status: Acute Assessment and plan: 80-year-old male with a history of urinary tract infection. He has an indwelling catheter. We'll continue this upon discharge. This will allow maximal drainage of his urinary tract. Continue with IV antibiotics until his white count begins to normalize. Consider transition to an oral fluoroquinolone upon discharge. Qualifiers: Urinary tract infection type: site unspecified Hematuria presence: without hematuria Qualified Code(s): N39.0 - Urinary tract infection, site not specified (2) BPH (benign prostatic hyperplasia) Current Visit: Yes Status: Chronic Assessment and plan: He has an indwelling catheter. His CT scan was reviewed which showed a large prostate with intravesical median lobe. Recommend to continue the catheter for now. We can have him follow-up in the office for possible voiding trial. He may need a TURP given this recent infection and the enlargement of his prostate. Qualifiers: Prostatic enlargement morphology: unspecified morphology Lower urinary tract symptom presence: presence of symptoms unspecified Qualified Code(s): N40.0 - Benign prostatic hyperplasia without lower urinary tract symptoms (3) Nephrolithiasis Current Visit: Yes Status: Acute Assessment and plan: His CT scan shows bilateral renal stones. Occasionally the stones could be a nidus for infection. I will discuss with him as an outpatient possible stone treatment with ureteroscopy and laser lithotripsy. For now, he doesn't require any surgical intervention. Thank you for allowing me to participate in Mr. Cedeno's care. Please call if questions. Urology CN:HPI Consult date: 07/19/16 Reason for consult Urology: Other (urinary tract infection) Requesting physician: Deniz Lim History of present illness: Mr. Cedeno is an 80-year-old gentleman who is well known to me who was admitted for urinary tract infection. He was admitted on July 17, 2016 with concern for weakness and chills. Urine culture is growing out Escherichia coli which is pansensitive. He also had positive blood cultures for Escherichia coli, too. A catheter was placed. He also had a CT scan which showed evidence of bilateral nephrolithiasis, but no obstructing ureteral stones. His prostate is enlarged. The catheter was in good position. He was initially oliguric, but his urine output has improved. His renal function is approaching his baseline. He says he feels better today. He is tolerating the catheter fairly well. I discussed the infection with him and his . Past Med Surg Social Fam HX - Past Medical History Medical history: cancer, hyperlipidemia, hypertension, renal disease Psychiatric history: no psych history - Past Surgical History Surgical History: cancer surgery - Social History Smoking Status: Former smoker Smokeless Tobacco Status: No Alcohol use: none Drug use: none Medications and Allergies Atenolol [Tenormin] 50 mg PO DAILY 07/17/16 [History] Atorvastatin [Lipitor] 10 mg PO HS 07/17/16 [History] Tamsulosin HCl [Flomax] 0.4 mg PO DAILY 07/17/16 [History] Allergies Penicillins [PCN] Allergy (Verified 07/17/16 07:28) Hives Review of Systems - Constitutional chills, no fever(s) - EENT Nose, mouth and throat: no dizziness - Cardiovascular no chest pain - Respiratory no dyspnea - Gastrointestinal no nausea, no vomiting - Genitourinary no flank pain, no hematuria - Musculoskeletal no back pain - Integumentary no erythema, no rash - Neurological no weakness - Psychiatric no suicidal ideation - Hematologic/Lymphatic no easy bleeding - Allergic/Immunologic no wheezing Exam Initial Vital Signs Temp Pulse Resp BP Pulse Ox 97.9 F 90 16 134/67 95 07/16/16 22:11 07/16/16 22:11 07/16/16 22:11 07/16/16 22:11 07/16/16 22:11 - General physical appearance Present: well developed, well nourished, no distress - Eyes Absent: icteric - ENT Present: normal nares - Neck Present: trachea midline - Respiratory Present: normal respiratory effort - Cardiovascular Cardiovascular exam IM: RRR - Abdomen Abdomen: Present: soft - Genitourinary normal penis with no external lesions, other (catheter in place with clear urine.) Urology Results - Labs 07/19/16 03:08 07/19/16 03:08 Abnormal lab results WBC 25.9 K/mcL (4.3-11.1) H 07/19/16 03:08 RBC 3.53 M/mcL (4.19-5.50) L 07/19/16 03:08 Hgb 11.6 g/dL (12.9-16.9) L 07/19/16 03:08 Hct 34.9 % (37.5-50.1) L 07/19/16 03:08 RDW 15.7 % (11.5-14.5) H 07/19/16 03:08 Plt Count 80 K/mcL (140-400) L 07/19/16 03:08 Band Neutrophils % 12.0 % (0-4) H 07/19/16 03:08 Neutrophils # 23.3 K/mcL (1.6-8.9) H 07/19/16 03:08 Nucleated RBCs/100 WBC 0.7 /100 WBC (0) H 07/16/16 22:32 Reactive Lymphocytes Present (Not Present) A 07/17/16 06:06 Platelet Estimate Decreased (Normal) L 07/19/16 03:08 Large Platelets Present (Not Present) A 07/16/16 22:32 Immature Plt Fraction 6.8 % (1.1-6.1) H 07/17/16 06:06 Chloride 113 mEq/L (98-109) H 07/19/16 03:08 BUN 43 mg/dL (8-26) H 07/19/16 03:08 Creatinine 1.74 mg/dL (0.72-1.25) H 07/19/16 03:08 Est GFR ( Amer) 46 (> 60) L 07/19/16 03:08 Est GFR (Non-Af Amer) 38 (> 60) L 07/19/16 03:08 Glucose 109 mg/dL (70-99) H 07/19/16 03:08 Calculated Osmolality 305 (280-300) H 07/19/16 03:08 Calcium 7.9 mg/dL (8.6-10.8) L 07/19/16 03:08 AST 57 Units/L (5-34) H 07/19/16 03:08 ALT 83 Units/L (0-55) H 07/19/16 03:08 Troponin I 0.06 ng/mL (0-0.03) H* 07/17/16 01:10 Serum Total Protein 5.8 g/dL (6.0-8.3) L 07/19/16 03:08 Albumin 2.6 g/dL (3.5-5.0) L 07/19/16 03:08 Albumin/Globulin Ratio 0.8 (1.1-2.2) L 07/19/16 03:08 PTH Intact 209.0 pg/ml (8.5-72.5) H 07/18/16 09:10 Urine Clarity Turbid (Clear) A 07/17/16 01:40 Urine Protein 100 mg/dL (Neg-Trace) H 07/17/16 01:40 Urine Blood Large (Negative) H 07/17/16 01:40 Urine Bilirubin Small (Negative) H 07/17/16 01:40 Ur Leukocyte Esterase Large (Negative) H 07/17/16 01:40 Urine Microscopic RBC 15-30 per hpf (0-3) H 07/17/16 01:40 Urine Microscopic WBC TNTC per hpf (0-3) H 07/17/16 01:40 Ur Squamous Epith Cells Many per lpf (None-Few) H 07/17/16 01:40 Urine Bacteria Many per hpf (None-Few) H 07/17/16 01:40 Urine Yeast Few per hpf (None Seen) H 07/17/16 01:40 Ur Culture Indicated? YES (NO) A 07/17/16 01:40 Enterobacteriac sp PCR DETECTED (Not Detect) A 07/17/16 02:50 E. coli (PCR) DETECTED (Not Detect) A 07/17/16 02:50 Diabetes panel 07/19/16 Range/Units 03:08 Sodium 142 (136-145) mEq/L Potassium 4.4 (3.5-4.5) mEq/L Chloride 113 H (98-109) mEq/L Carbon Dioxide 19 (19-29) mEq/L BUN 43 H (8-26) mg/dL Creatinine 1.74 H (0.72-1.25) mg/dL Glucose 109 H (70-99) mg/dL Calcium 7.9 L (8.6-10.8) mg/dL AST 57 H (5-34) Units/L ALT 83 H (0-55) Units/L Alkaline Phosphatase 112 (38-126) Units/L Albumin 2.6 L (3.5-5.0) g/dL Calcium panel 07/18/16 07/19/16 Range/Units 09:10 03:08 Calcium 7.9 L (8.6-10.8) mg/dL Phosphorus 3.6 (2.3-4.7) mg/dL Albumin 2.6 L (3.5-5.0) g/dL Pituitary panel 07/19/16 Range/Units 03:08 Sodium 142 (136-145) mEq/L Potassium 4.4 (3.5-4.5) mEq/L Chloride 113 H (98-109) mEq/L Carbon Dioxide 19 (19-29) mEq/L BUN 43 H (8-26) mg/dL Creatinine 1.74 H (0.72-1.25) mg/dL Glucose 109 H (70-99) mg/dL Calcium 7.9 L (8.6-10.8) mg/dL Adrenal panel 07/19/16 Range/Units 03:08 Sodium 142 (136-145) mEq/L Potassium 4.4 (3.5-4.5) mEq/L Chloride 113 H (98-109) mEq/L Carbon Dioxide 19 (19-29) mEq/L BUN 43 H (8-26) mg/dL Creatinine 1.74 H (0.72-1.25) mg/dL Glucose 109 H (70-99) mg/dL Calcium 7.9 L (8.6-10.8) mg/dL Total Bilirubin 0.7 (0.2-1.2) mg/dL AST 57 H (5-34) Units/L ALT 83 H (0-55) Units/L Alkaline Phosphatase 112 (38-126) Units/L Albumin 2.6 L (3.5-5.0) g/dL All other labs normal. - Imaging CT scan - abdomen: report reviewed, image reviewed CT scan - pelvis: report reviewed, image reviewed Consult Discharge Plan - Plan Referrals: Ish Scherer DO [Primary Care Provider] -
--- NOTE | 2016-07-19 10:27 | Internal Med Progress Note ---
Date of Encounter: 07/19/16 Time of Encounter: 10:24 - Assessment and plan (1) Severe sepsis Current Visit: Yes Status: Acute Assessment and plan: Secondary to acute pyelonephritis, gram negative septicemia Patient with leukocytois, blood pressure has improved No tachycardia(however, patient was on atenolol) Severe sepsis with JOSEY on CKD, improving Lactate is now normal CXR is clear On Meropenem (due to penicillin allergy and severity of sepsis), continue same D/C maintenance fluid later today, encourage liberal fluid intake Strict intake/output monitoring Follow blood and urine cultures Abd CT with bilateral nephrolithiasis, pyelonephritis, renal cysts, BPH, no abscesses ECHO Normal EF 55%, N RV size and function, No Pulm HTN Patient is high risk for decompensation to septic shock and multi-organ failure He is full code (2) Gram negative sepsis Current Visit: Yes Status: Acute Assessment and plan: As above (3) Urinary tract infection Current Visit: Yes Status: Acute Assessment and plan: As above, follow blood and urine cultures Qualifiers: Urinary tract infection type: site unspecified Hematuria presence: without hematuria Qualified Code(s): N39.0 - Urinary tract infection, site not specified (4) Lactic acidosis Current Visit: Yes Status: Resolved Assessment and plan: Improving (5) Acute kidney injury superimposed on CKD Current Visit: Yes Status: Acute Assessment and plan: Patient with hx of CKD III, BPH now with JOSEY on CKD Improving Avoid nephrotoxins Renal input appreciated Continue IVF (6) BPH (benign prostatic hyperplasia) Current Visit: Yes Status: Chronic Assessment and plan: Hold Tamsulosin for now, may restart when BP is better Qualifiers: Prostatic enlargement morphology: unspecified morphology Lower urinary tract symptom presence: presence of symptoms unspecified Qualified Code(s): N40.0 - Benign prostatic hyperplasia without lower urinary tract symptoms (7) Hyperlipidemia Current Visit: Yes Status: Chronic Assessment and plan: Resume statin Qualifiers: Hyperlipidemia type: unspecified Qualified Code(s): E78.5 - Hyperlipidemia , unspecified - Subjective Interval history: 80 Y/O M with PMH of HTN, BPH, HLD Admitted for management of severe sepsis secondary to acute pyelonephritis, JOSEY , Lactic acidosis He is seen at bedside He has no new complains His renal function is improving His WBC count has stabilized around 25,000 but his %band has decreased Will adjust meropenem with renal function HB is stable Urine and blood culture with cherry-sensitive E.coli He is afebrile for >48 hrs ECHO done, reports noted. Intake/Output shows urine output yesterday 1.15L. Will continue maintenance flid at 75 cc/hr Transition to liberal fluid intake, patient is educated about this has been consulted for BPH and JOSEY with nephrolithiasis, recommendations noted - Constitutional Vitals: Temp Pulse Resp BP Pulse Ox 97.4 F L 59 18 133/72 97 07/19/16 07:25 07/19/16 07:25 07/19/16 07:25 07/19/16 07:25 07/19/16 07:25 General appearance: Present: A&O X 3, pleasant, no acute distress, answers questions appropriately - Head Head exam: Present: atraumatic, normocephalic Additional comments: Right lower lip maday - Eye Eye exam: Present: PERRL, conjuntiva pink, sclera anicteric Pupils: Present: PERRL - Neck Neck exam general surgery: Present: supple, trachea midline. Absent: lymphadenopathy - Respiratory Respiratory exam: Present: CTAB. Absent: accessory muscle use, rales, rhonchi, wheezes - Cardiovascular Cardiovascular exam: Present: RRR, +S1, +S2. Absent: diastolic murmur, gallop, rubs, systolic murmur - GI/Abdominal GI/Abdominal exam: Present: normal bowel sounds, soft, no peritoneal signs. Absent: distended, tenderness - Additional comments: Feng draining clear urine - Extremities Exam Extremities exam: Present: warm, radial pulses palpable and symetrical. Absent : calf tenderness, cyanotic, pedal edema - Neurological Exam Neurological exam: Present: CN II-XII intact, oriented X3, no focal deficits. Absent: pronater drift, facial droop, speech deficit - Skin Skin exam: Present: dry, intact Internal Medicine: Result - Labs CBC & Chem 7: 07/19/16 03:08 07/19/16 03:08 Labs: Short CBC 07/19/16 Range/Units 03:08 WBC 25.9 H (4.3-11.1) K/mcL Hgb 11.6 L (12.9-16.9) g/dL Hct 34.9 L (37.5-50.1) % Plt Count 80 L (140-400) K/mcL Neutrophils # 23.3 H (1.6-8.9) K/mcL BMP 07/19/16 03:08 Sodium 142 Potassium 4.4 Chloride 113 H Carbon Dioxide 19 BUN 43 H Creatinine 1.74 H Glucose 109 H Calcium 7.9 L Liver Function 07/19/16 Range/Units 03:08 Total Bilirubin 0.7 (0.2-1.2) mg/dL AST 57 H (5-34) Units/L ALT 83 H (0-55) Units/L Alkaline Phosphatase 112 (38-126) Units/L Albumin 2.6 L (3.5-5.0) g/dL - VTE Documentation of Mechanical Device: Intermittent pneumatic compression device Consult Discharge Plan - Plan Referrals: Ish Scherer DO [Primary Care Provider] -
[2016-07-19] MEDS: Sennosides/Docusate Sodium TABLET PO SCH ×2 (11:05→19:55)
[2016-07-20 03:46] LABS: Basophils % 0.2 %; Immature Granulocytes % 0.5 % (0-4)
[2016-07-20 03:48] LABS: Eosinophils # 0.2 K/mcL (0.0-0.6); Eosinophils % 1.3 %; Hematocrit 33.6 % (37.5-50.1); Hemoglobin 11.1 g/dL (12.9-16.9); Immature Platelets 7.9 % (1.1-6.1); Lymphocytes # 1.6 K/mcL (0.6-4.6); Lymphocytes % 8.4 %; Mean Corpuscular Hemoglobin 32.4 pg (28.0-33.3); Mean Platelet Volume 10.4 fL (9.4-12.4); Monocytes % 4.6 %; Neutrophils # 15.6 K/mcL (1.6-8.9); Red Blood Count 3.43 M/mcL (4.19-5.50); Red Cell Distribution Width 15.5 % (11.5-14.5)
[2016-07-20 03:52] LABS: Monocytes # 0.9 K/mcL (0.0-1.3); Platelet Count 77 K/mcL (140-400)
[2016-07-20 03:59] LABS: Alanine Aminotransferase 71 Units/L (0-55); Albumin 2.4 g/dL (3.5-5.0); Albumin/Globulin Ratio 0.8 (1.1-2.2); Alkaline Phosphatase 122 Units/L (38-126); Aspartate Amino Transferase 48 Units/L (5-34); BUN/Creatinine Ratio 25 (6-26); Bilirubin,Total 0.9 mg/dL (0.2-1.2); Blood Urea Nitrogen 33 mg/dL (8-26); Calcium 7.8 mg/dL (8.6-10.8); Carbon Dioxide 20 mEq/L (19-29); Chloride 114 mEq/L (98-109); Globulin 2.9 g/dL (2.4-3.5); Glucose 96 mg/dL (70-99); Osmolality,Calculated 303 (280-300); Potassium 4.3 mEq/L (3.5-4.5); Sodium 143 mEq/L (136-145); Total Protein 5.3 g/dL (6.0-8.3); eGFR For African Americans > 60 (> 60); eGFR For Non-African Americans 52 (> 60)
[2016-07-20] MEDS: Meropenem 1,000 MG in 0.9 % Sodium Chloride Mini Bag 100 ML IVPB SCH (06:02)
[2016-07-20] MEDS: Sennosides/Docusate Sodium TABLET PO SCH ×2 (08:13→20:19)
--- NOTE | 2016-07-20 09:29 | Event Note ---
Date of Encounter: 07/20/16 Time of Encounter: 09:28 The patient's renal function has returned to baseline. White count is improving. Nephrology will sign off. Please call again if needed.
[2016-07-20] MEDS: levoFLOXacin 750 MG TABLET PO SCH (09:31)
[2016-07-20] MEDS ORDERED: amLODIPine 5 MG TABLET PO ONE (16:15)
--- NOTE | 2016-07-20 16:28 | Internal Med Progress Note ---
Date of Encounter: 07/20/16 Time of Encounter: 13:00 - Assessment and plan (1) Severe sepsis Current Visit: Yes Status: Acute Assessment and plan: Secondary to acute pyelonephritis, gram negative septicemia Lactic acidosis resolved, hypotension resolved now needs BP meds, leukocytosis is improving CXR is clear Has received 3 days of Meropenem, will change to po Levofloxacin due to sensitivity D/C maintenance fluid later today, encourage liberal fluid intake Blood and Urine cultures with pansensitive E.coli Abd CT with bilateral nephrolithiasis, pyelonephritis, renal cysts, BPH, no abscesses ECHO Normal EF 55%, N RV size and function, No Pulm HTN Patient has made significant improvement and may be able to be discharged home once oxygen is set up He will need to complete 10-14 days on antibiotics and follow up with for void trial and solomon catheter discontinuation (2) Gram negative sepsis Current Visit: Yes Status: Acute Assessment and plan: As above (3) Urinary tract infection Current Visit: Yes Status: Acute Assessment and plan: As above Qualifiers: Urinary tract infection type: site unspecified Hematuria presence: without hematuria Qualified Code(s): N39.0 - Urinary tract infection, site not specified (4) Lactic acidosis Current Visit: Yes Status: Resolved Assessment and plan: Resolved (5) Acute kidney injury superimposed on CKD Current Visit: Yes Status: Acute Assessment and plan: Patient with hx of CKD III, BPH now with JOSEY on CKD Improved IVF has been discontinued (6) BPH (benign prostatic hyperplasia) Current Visit: Yes Status: Chronic Assessment and plan: Resumed Tamsulosin Qualifiers: Prostatic enlargement morphology: unspecified morphology Lower urinary tract symptom presence: presence of symptoms unspecified Qualified Code(s): N40.0 - Benign prostatic hyperplasia without lower urinary tract symptoms (7) Hyperlipidemia Current Visit: Yes Status: Chronic Assessment and plan: Resume statin Qualifiers: Hyperlipidemia type: unspecified Qualified Code(s): E78.5 - Hyperlipidemia , unspecified (8) Hypertension Current Visit: Yes Status: Chronic Assessment and plan: Resumed meds today, added Norvasc 5mg daily Qualifiers: Hypertension type: essential hypertension Qualified Code(s): I10 - Essential (primary) hypertension (9) Acute and chronic respiratory failure with hypoxia Current Visit: Yes Status: Acute Assessment and plan: Secondary to underlying COPD Qualified for home O2 - Subjective Interval history: 80 Y/O M with PMH of HTN, BPH, HLD Admitted for management of severe sepsis secondary to acute pyelonephritis, JOSEY , Lactic acidosis He is seen at bedside He has no new complains His renal function is improving His WBC count is improving HB is stable Urine and blood culture with cherry-sensitive E.coli He is afebrile for >48 hrs ECHO done, reports noted. Intake/Output shows adequate urine output patient noted to be oxygen dependent , especially on ambulation and qualified for home o2. Patient has a hx o 46 pack year smoking , but quit >15 years ago, he is supposed to be on Albuterol/Spiriva but states "I just stopped". I suspect he has undiagnosed COPD as he has been wheezing since admission, no respratory distress and improves with nebs. He will need O2 set up at home (for acute on chronic respiratory failure and follow up with Pulmonary as outpatient) I will d/c meropenem and start po levofloxacin - Constitutional Vitals: Temp Pulse Resp BP Pulse Ox 98.3 F 54 18 165/74 96 07/20/16 16:05 07/20/16 16:05 07/20/16 16:05 07/20/16 16:05 07/20/16 16:05 General appearance: Present: A&O X 3, pleasant, no acute distress, answers questions appropriately - Head Head exam: Present: atraumatic, normocephalic - Eye Eye exam: Present: PERRL, conjuntiva pink, sclera anicteric Pupils: Present: PERRL - Neck Neck exam general surgery: Present: supple, trachea midline. Absent: lymphadenopathy - Respiratory Respiratory exam: Present: CTAB, wheezes. Absent: accessory muscle use, rales, rhonchi - Cardiovascular Cardiovascular exam: Present: RRR, +S1, +S2. Absent: diastolic murmur, gallop, rubs, systolic murmur - GI/Abdominal GI/Abdominal exam: Present: normal bowel sounds, soft, no peritoneal signs. Absent: distended, tenderness - Extremities Exam Extremities exam: Present: warm, radial pulses palpable and symetrical. Absent : calf tenderness, cyanotic, pedal edema - Neurological Exam Neurological exam: Present: CN II-XII intact, oriented X3, no focal deficits. Absent: pronater drift, facial droop, speech deficit - Skin Skin exam: Present: dry Internal Medicine: Result - Labs CBC & Chem 7: 07/20/16 03:43 07/20/16 03:43 Labs: Short CBC 07/20/16 Range/Units 03:43 WBC 18.4 H (4.3-11.1) K/mcL Hgb 11.1 L (12.9-16.9) g/dL Hct 33.6 L (37.5-50.1) % Plt Count 77 L (140-400) K/mcL Neutrophils # 15.6 H (1.6-8.9) K/mcL BMP 07/20/16 03:43 Sodium 143 Potassium 4.3 Chloride 114 H Carbon Dioxide 20 BUN 33 H D Creatinine 1.33 H Glucose 96 Calcium 7.8 L Liver Function 07/20/16 Range/Units 03:43 Total Bilirubin 0.9 (0.2-1.2) mg/dL AST 48 H (5-34) Units/L ALT 71 H (0-55) Units/L Alkaline Phosphatase 122 (38-126) Units/L Albumin 2.4 L (3.5-5.0) g/dL - VTE Documentation of Mechanical Device: Intermittent pneumatic compression device Consult Discharge Plan - Plan Referrals: Ish Scherer DO [Primary Care Provider] -
[2016-07-21 06:58] VITALS: BP 153/73
[2016-07-21] MEDS: levoFLOXacin 750 MG TABLET PO SCH (07:54)
[2016-07-21] MEDS ORDERED: amLODIPine 5 MG TABLET PO SCH (09:00)
--- NOTE | 2016-07-21 09:12 | Discharge Summary ---
Date of Encounter: 07/21/16 Time of Encounter: 09:09 - Discharge Diagnosis (1) Gram negative sepsis Priority: Primary Status: Acute Comments: Sepsis secondary to Escherichia coli bacteremia and UTI (2) Bradycardia Priority: Secondary Status: Acute Comments: Likely secondary to atenolol was Decreased the dose from 50 mg down to 25 g daily (3) CHF (congestive heart failure) Priority: Secondary Status: Acute Comments: Hypoxia likely secondary to Acute diastolic CHF Start Lasix 20 mg daily at home Qualifiers: Congestive heart failure type: diastolic Congestive heart failure chronicity: acute Qualified Code(s): I50.31 - Acute diastolic (congestive) heart failure (4) Acute kidney injury superimposed on CKD Priority: Secondary Status: Acute (5) Nephrolithiasis Priority: Secondary Status: Acute (6) Severe sepsis Priority: Primary Status: Acute (7) Urinary tract infection Priority: Primary Status: Acute Qualifiers: Urinary tract infection type: site unspecified Hematuria presence: without hematuria Qualified Code(s): N39.0 - Urinary tract infection, site not specified (8) BPH (benign prostatic hyperplasia) Priority: Secondary Status: Chronic Qualifiers: Prostatic enlargement morphology: unspecified morphology Lower urinary tract symptom presence: presence of symptoms unspecified Qualified Code(s): N40.0 - Benign prostatic hyperplasia without lower urinary tract symptoms (9) Hypertension Priority: Secondary Status: Chronic Qualifiers: Hypertension type: essential hypertension Qualified Code(s): I10 - Essential (primary) hypertension (10) Lactic acidosis Priority: Primary Status: Resolved - Discharge Medications Prescriptions: Atenolol [Tenormin] 25 mg PO DAILY #30 tablet Furosemide [Lasix] 20 mg PO DAILY #30 tablet Levofloxacin 750 mg PO DAILY #3 tablet Home Medications: Atorvastatin [Lipitor] 10 mg PO HS 07/17/16 [History] Tamsulosin HCl [Flomax] 0.4 mg PO DAILY 07/17/16 [History] Atenolol [Tenormin] 25 mg PO DAILY #30 tablet 07/21/16 [Rx] Furosemide [Lasix] 20 mg PO DAILY #30 tablet 07/21/16 [Rx] Levofloxacin 750 mg PO DAILY #3 tablet 07/21/16 [Rx] Allergies/Adverse Reactions: Allergies Penicillins [PCN] Allergy (Verified 07/17/16 07:28) Hives Date of admission: 07/17/16 05:31 Primary care physician: Ish Scherer Consults: 07/17/16 08:03 Consult to Invasive Line Access Team [CONS] Routine Reason for Consult: Picc Line Insertion Line Type: PICC 07/18/16 08:04 Consult to Nephrology [CONS] Stat Consulting Provider: [facility] Diana SILVERIO Reason for Consult: JOSEY on CKD Call Completed: Yes 07/19/16 08:55 Consult to Urology [CONS] Routine Consulting Provider: Urology Stacey Reason for Consult: BPH with JOSEY, pls evaluate, thank you Call Completed: Yes - Patient Status Disposition: Home Health Service Condition: Good Overall status at discharge: patient is progressing back to baseline - Discharge Instructions Follow Up With: Ish Scherer, [Primary Care Provider] - Additional Instructions: Follow with primary care physician within the next 7 days. Continue 3 more days of Levaquin. Start Lasix 20 mg daily. Decreased dose of atenolol from 50 mg daily down to 25 mg daily. Follow with urology within the next 7 days, keep Feng catheter in. - Diet and Activity Activity: increase activity as tolerated, wear oxygen at night (2 L, as needed) Diet: low fat, low cholesterol Hospital course: Mr. Cedeno is a 80 year old male with PMHx of CKD III, HLD, history of colon cancer-status post bowel resection, HTN, COPD, osteoarthritis. Patient came to the ED with son and with chief complaint of chill and weakness that started around 2:30 pm. He also stated that he felt extremely weak and couldn't get up out of his chair. He had one episode of non bloody emesis with dry heaving. He denies any recent sick contacts, denies recent travel history. He has a baseline productive cough with mucousy phlegm production. Was found to have a urinary tract infection, was diagnosed with sepsis and was started on Merrem. He was switched to Levaquin after obtaining the report of the blood cultures and urine cultures with showed Escherichia coli that was pansensitive. The patient was evaluated by the urology service, the Feng catheter was recommended to be maintained until following as outpatient. Patient's tachycardia and blood pressure improved. His oxygen saturation dropped below 90, an echocardiogram was performed showing an ejection fraction of 55% unable to determine the diastolic function. The patient will be started on Lasix today and will have oxygen available at home. I suspect this could be just volume overload and will resolve over time. Continue 3 more days of Levaquin. The patient's heart rate went to the high 40s and low 50s. We will decrease his dose of atenolol from 50 mg daily down to 25 mg daily. - Time Spent with Patient Total time spent providing and/or coordinating discharge services: Greater than 30 minutes (40 minutes) - Constitutional Vitals: Temp Pulse Resp BP Pulse Ox 97.9 F 53 16 153/73 97 07/21/16 06:57 07/21/16 06:57 07/21/16 06:57 07/21/16 06:57 07/21/16 06:57 General appearance: Present: A&O X 3, pleasant, no acute distress, answers questions appropriately - Head Head exam: Present: atraumatic, normocephalic - Eye Eye exam: Present: PERRL, conjuntiva pink, sclera anicteric Pupils: Present: PERRL - Neck Neck exam general surgery: Present: supple, trachea midline. Absent: lymphadenopathy - Respiratory Respiratory exam: Present: CTAB, rales. Absent: accessory muscle use, rhonchi, wheezes Additional comments: Bibasilar fine crackles - Cardiovascular Cardiovascular exam: Present: RRR, +S1, +S2. Absent: diastolic murmur, gallop, rubs, systolic murmur - GI/Abdominal GI/Abdominal exam: Present: normal bowel sounds, soft, no peritoneal signs. Absent: distended, tenderness - Extremities Exam Extremities exam: Present: warm, radial pulses palpable and symetrical. Absent : calf tenderness, cyanotic, pedal edema - Neurological Exam Neurological exam: Present: CN II-XII intact, oriented X3, no focal deficits. Absent: pronater drift, facial droop, speech deficit - Skin Skin exam: Present: dry, intact - VTE Documentation of Mechanical Device: Intermittent pneumatic compression device
[2016-07-21] MEDS: Sennosides/Docusate Sodium TABLET PO SCH (09:13)
[2016-07-21] MEDS ORDERED: Furosemide 40 MG/4 ML VIAL IV SCH (09:15)
[2016-07-22 11:38] LABS: Urine Collection Duration RANDOM hr; Urine Collection Volume RANDOM mL
[2016-07-24 08:27] LABS: Alpha 2 Globulin (PEP) 0.6 g/dL (0.5-1.1); Beta Globulin (PEP) 0.6 g/dL (0.5-1.1)
== END 2016-07-21 12:21 | disposition home health service (06) | DRG 871 ==
LOC: 2ANU 22:07 → EMEROO 22:07 → 2ANU 07-17 03:42 → SUATTDRO 07-17 05:31
PROVIDERS: ADMIT Internal Medicine; ATTEND Internal Medicine

== ENCOUNTER 2016-09-21 07:43 | Observation (INO) ==
[2016-09-21] MEDS ORDERED: Levofloxacin 500 MG/100 ML 500 MG/100 ML BAG IVPB ONE (07:55)
[2016-09-21] MEDS ORDERED: Lidocaine -MPF 1% 2 ML VIAL ID ONE (07:55)
[2016-09-21] MEDS ORDERED: Albuterol 2.5 MG/3 ML NEBULIZER IH ONE (07:55)
[2016-09-21] MEDS ORDERED: Albuterol 2.5 MG/3 ML NEBULIZER ONE (07:59)
[2016-09-21] MEDS ORDERED: Lidocaine -MPF 4% 5 ML AMPUL ONE (08:08)
[2016-09-21] MEDS ORDERED: *HR* Succinylcholine 200 MG/10 ML VIAL IVP ONE (08:08)
[2016-09-21] MEDS ORDERED: Ondansetron 4 MG/2 ML VIAL ONE (08:09)
[2016-09-21] MEDS ORDERED: *HR* Propofol 200 MG/20 ML VIAL IVP ONE (08:09)
[2016-09-21] MEDS ORDERED: *HR* FentaNYL (PF) 100 MCG/2 ML VIAL ONE (08:09)
[2016-09-21] MEDS ORDERED: Lidocaine -MPF 2% 2 ML VIAL ONE (08:09)
[2016-09-21] MEDS ORDERED: Dexamethasone 4 MG/ML VIAL ONE (08:09)
--- NOTE | 2016-09-21 08:12 | Anesthesia Evaluation PreOp ---
Date of Encounter: 09/21/16 Time of Encounter: 08:10 - Past History Planned Operation: Bilat USE with stent he goes by Bill Cardiac History: HTN, Hyperlipidemia, Other (echo 07/07: ef 55, nl rv) Pulmonary History: Former smoker (quit 14 years ago), COPD (emphysema), [employer] History: Denies Any Significant HX Other Medical History: Renal (stones) Anesthesia History: No Prior Anesthetic Complications, Past Anesthesia (gastric , colon, r thumb) Alcohol Use: none Drug use: none Medications and Allergies Atorvastatin [Lipitor] 10 mg PO HS 07/17/16 [History] Tamsulosin HCl [Flomax] 0.4 mg PO DAILY 07/17/16 [History] Atenolol [Tenormin] 25 mg PO DAILY #30 tablet 07/21/16 [Rx] Furosemide [Lasix] 20 mg PO DAILY #30 tablet 07/21/16 [Rx] Levofloxacin 750 mg PO DAILY #3 tablet 07/21/16 [Rx] Allergies Penicillins [PCN] Allergy (Verified 07/17/16 07:28) Hives - Meds/Allergy Pre-op Review Medications Reviewed: Yes Allergies Reviewed: Yes Beta Blockers on Current Med List: No Anesthesia Results - Labs Laboratory Tests 09/03/16 09/03/16 10:24 10:24 Hgb 13.3 Hct 39.6 Plt Count 175 Sodium 140 Potassium 4.6 H Creatinine 1.77 H - Imaging EKG: report reviewed (sr) Anesthesia Exam O2 Sat Height 1.88 m Height 1.88 m Height 1.88 m Height 1.88 m Weight 102.965 kg Weight 102.965 kg Weight 102.965 kg Weight 102.512 kg O2 Sat by Pulse Oximetry 95 O2 Sat by Pulse Oximetry 95 Vital Signs Temp Pulse Resp BP Pulse Ox 97.9 F 53 18 164/77 95 09/21/16 08:05 09/21/16 08:05 09/21/16 08:05 09/21/16 08:05 09/21/16 08:05 Height: 1.88 Weight: 103 NPO (# of Hours): >8 - HEENT Pupil (Motor): Pupils equal, EOMI Mallampati: II Teeth: Poor dentition Oral Opening: Greater than 3 - [employer] LOC: Oriented [employer] Motor: Normal RUE, Normal LUE, Normal RLE, Normal LLE, Normal Face [employer] Sensory: Normal: RUE, LUE, RLE, LLE, Face - Cardiac Rhythm: Regular Murmur: None - Pulmonary Breath Sounds: bilateral Clear Respiratory Effort: Symmetrical Anesthesia Assess/Plan ASA Score: 3 Modified Destiny Scale for Level of Consciousness: Cooperative, oriented, and tranquil Anesthetic Plan: General Monitoring Plan: Standard Monitors Recovery Plan: PACU
[2016-09-21] MEDS: Ringers Solution, Lactated 1,000 ML IVC SCH ×2 (08:21→12:19)
[2016-09-21] MEDS ORDERED: Ondansetron 4 MG/2 ML VIAL IVP ONE (08:25)
[2016-09-21] MEDS ORDERED: *HR* Labetalol 100 MG/20 ML MDV IVP PRN (08:25)
--- NOTE | 2016-09-21 09:09 | History & Physical Report ---
Date of Encounter: 09/21/16 Time of Encounter: 09:09 24 Hour HP Update - Instructions Instructions: If the History and Physical is less than 30 days old and was completed prior to A.M. admission and or procedure and has NOT been updated on calendar day of procedure please complete this update prior to performing procedure. - Update Patient reports changes in Medical Condition: No Changes in examination, assessment, or condition: No Changes in Medication: No Preop tests/diagnostics Reviewed: Yes Surgery Remains Indicated: Yes Consent for Planned Operative Procedure(s) Verified: Yes - Pre-Operative Checklist Preoperative Checklist Indicated: Yes Prophylactic Antibiotic Ordered: Yes Home Medications Include Beta Zeeshan: No Is VTE Prophylaxis Indicated?: Yes
[2016-09-21] MEDS ORDERED: EPHEDrine 50 MG/ML VIAL ONE (09:43)
--- NOTE | 2016-09-21 11:20 | Operative Note ---
Date of procedure: 09/21/16 Pre-op diagnosis: Bilateral renal stones Post-op diagnosis: same Procedure: Bilateral ureteroscopy, laser lithotripsy, retrograde pyelogram, and ureteral stent placement. Implants: Bilateral 6 [place] by 28 cm double-J stents. 18 [place] Feng catheter. Complications: None. Anesthesia: HAYESA Surgeon: Jason Palmer Estimated blood loss (cc): 4 Specimen: none Condition: stable Disposition: PACU Procedure in Detail: Indications: Mr. Bejarano an 81-year-old male who has a history of nephrolithiasis. A CT scan showed bilateral lower pole renal stones. He elected to undergo a bilateral ureteroscopy, laser lithotripsy, and basket stone extraction with stent placement. He was aware of the risks of the procedure including but not limited to bleeding, infection, injury to other structures, need for further procedures , stent irritation, need for nephrostomy tube, need for open repair, risks otherwise unforeseen, and the risk of anesthesia. He is willing to proceed. Procedure in Detail: After informed consent was obtained the patient was brought back to the operating room and placed in supine position. A time out was performed. General anesthesia was administered and an endotracheal tube was placed. He was then placed in the lithotomy position. He was prepped and draped in the usual sterile fashion. Cystoscopy was performed. The anterior urethra was normal. He had a very large prostate with a large intravesical median lobe. There was no evidence of bladder tumors. The ureteral orifices were in the normal orthotopic position. There was no duplication of the ureteral orifices. There was 3+ trabeculations. The sensor wire was placed in the right ureteral orifice. The wire was then brought up into the kidney under fluoroscopic guidance. I then passed the 8/10 [place] ureteral dilator. The inner obturator was removed and the Zip wire was placed. I then attempted to place an 11/13 [place] sheath, but it did not pass beyond the distal ureter. The flexible ureteroscope was then advanced into the kidney. There was a stone in the lower pole calyx which was lithotripsied. I then inserted a 200 n laser fiber and fragmented the stone into small pieces. I was concerned that I would not be able to get back up the ureter as maneuverability was difficult. I felt that the stone fragments were of a smaller size that could pass on their own. A retrograde pyelogram was then performed. There was no evidence of extravasation. The ureteroscope was removed. There is no evidence of ureteral injury. A 6 [place] by 28cm JJ stent was then placed. The dangle strings were removed. Attention was then turned to the left side. The sensor wire was placed in the left ureteral orifice. The wire was then brought up into the kidney under fluoroscopic guidance. I then passed the 8/10 [place] ureteral dilator. The inner obturator was removed and the Zip wire was placed. I then attempted to place an 11/13 [place] sheath, but it did not pass beyond the distal ureter as well. The flexible ureteroscope was then advanced into the kidney. There was a stone in the lower pole calyx which was lithotripsied. I again utilized the 200 n laser fiber and fragmented the stone into small pieces. As maneuverability was difficult here I elected just to fragment the stones into smaller pieces which could pass on their own. A retrograde pyelogram was then performed. There was no evidence of extravasation. The ureteroscope was removed. There is no evidence of ureteral injury. A 6 [place] by 28cm JJ stent was then placed. The dangle strings were removed. As he had a large prostate, I felt it best to place a catheter as he had previously had difficulty with urinary retention. We will have him remove this in 2-3 days. An 18 [place] coud catheter was placed. The patient was then awakened from general anesthesia and brought to recovery room in good condition. All sponge, needle, and instrument counts were correct.l
[2016-09-21] MEDS ORDERED: *HR* OxyCODONE/APAP 5/325 TABLET PO PRN (11:23)
--- NOTE | 2016-09-21 11:23 | Discharge Summary ---
Outpatient Proc Discharge Plan - Plan Additional Instructions: 1. The patient can follow up in 1 week for a cystoscopy and stent removal. 2. He should expect to feel flank pain with voiding. 3. The patient should call for any fevers, chills, nausea, emesis, or uncontrolled pain. 4. Please provide a work excuse if necessary for up to 1 week off. Please provide catheter care instructions - leg bag, night bag, leg strap and how to change the bags appropriately. He can remove his Feng catheter tomorrow at 7 AM. Please provide a 10 mL syringe and instructions. Alternatively, he can follow up tomorrow in our office for us to remove it. Prescriptions: Docusate [Colace] 100 mg PO BID #60 capsule Levofloxacin [Levaquin] 500 mg PO DAILY #3 tablet Oxycodone HCl/Acetaminophen [Percocet 5-325 mg Tablet] 1 each PO Q4H PRN #25 tablet PRN Reason: Pain Home Medications: Atorvastatin [Lipitor] 10 mg PO HS 07/17/16 [History] Tamsulosin HCl [Flomax] 0.4 mg PO DAILY 07/17/16 [History] Atenolol [Tenormin] 25 mg PO DAILY #30 tablet 07/21/16 [Rx] Docusate [Colace] 100 mg PO BID #60 capsule 09/21/16 [Rx] Levofloxacin [Levaquin] 500 mg PO DAILY #3 tablet 09/21/16 [Rx] Oxycodone HCl/Acetaminophen [Percocet 5-325 mg Tablet] 1 each PO Q4H PRN #25 tablet 09/21/16 [Rx]
[2016-09-21] MEDS: *HR* Morphine 2 MG/ML SYRINGE IVP PRN ×2 (11:29→11:42)
[2016-09-21] MEDS ORDERED: Acetaminophen IV 1,000 MG/100 ML INFUS..BTL IVPB ONE (11:54)
[2016-09-21] MEDS ORDERED: *HR* Midazolam HCl 2 MG/2 ML VIAL IVP ONE (11:57)
[2016-09-21] MEDS ORDERED: *HR* Midazolam HCl 2 MG/2 ML VIAL ONE (11:58)
--- NOTE | 2016-09-21 14:03 | Anesthesia Evaluation Post Op ---
Date of Encounter: 09/21/16 Time of Encounter: 14:03 - Vital Signs Vital Signs: Vital Signs/O2 Sat/Glucose, Most Current Temp Pulse Resp BP Pulse Ox 09/21/16 13:30 53 18 120/53 96 09/21/16 13:00 56 18 115/61 98 09/21/16 12:35 97.1 F L 54 18 134/67 96 09/21/16 12:30 97.3 F L 52 18 119/65 93 09/21/16 12:20 97.1 F L 62 18 147/74 95 09/21/16 12:10 60 20 157/75 98 09/21/16 12:00 50 10 162/77 95 09/21/16 11:50 96.8 F L 48 20 152/75 98 09/21/16 11:40 54 20 147/78 95 09/21/16 11:30 56 20 149/74 93 09/21/16 11:20 97.2 F L 60 20 139/72 97 - Lungs Lungs: Clear Ascult./Percussion - Airway Airway: Non-obstructed - Cardiovascular Regular Rate - Mental Status Mental Status: Alert & Oriented, Answers Appropriately - Pain Pain Scale: 3 - Nausea Vomiting Nausea Vomiting: Present - Hydration Hydration: Tolerates oral liquids Notes: 09/21/16 14:03 pt being admitted, excessive hematuria - Discharge PostOp Status: Transfer Patient to floor
[2016-09-21] MEDS ORDERED: *HR* Promethazine 25 MG/ML VIAL IVP ONE (14:05)
[2016-09-21] MEDS ORDERED: *HR* HYDROmorphone 2 MG/ML SYRINGE IVP PRN (15:33)
[2016-09-21] MEDS ORDERED: Naloxone 0.4 MG/ML INJ IVP PRN (15:33)
[2016-09-21] MEDS ORDERED: *HR* Belladonna Alkaloids/Opium 30 MG RECTAL SUPPOSITORY RC PRN (15:33)
[2016-09-21] MEDS ORDERED: Acetaminophen 325 MG TABLET PO PRN (15:33)
[2016-09-21] MEDS: Ondansetron 4 MG/2 ML VIAL IVP PRN (16:20)
[2016-09-21] MEDS ORDERED: Metoclopramide 10 MG in 0.9 % Sodium Chloride 50 ML IVPB PRN (17:12)
[2016-09-21] MEDS: 0.9 % Sodium Chloride 1,000 ML IVC SCH (17:18)
[2016-09-21] MEDS: *HR* HYDROmorphone 2 MG/ML SYRINGE IVP PRN ×2 (17:26→20:26)
[2016-09-22] MEDS: 0.9 % Sodium Chloride 1,000 ML IVC SCH ×3 (02:07→17:01)
[2016-09-22] MEDS: *HR* HYDROcodone/Acet 5/325 mg TABLET PO PRN ×2 (05:04→08:23)
[2016-09-22 06:00] LABS: Hemoglobin 11.5 g/dL (12.9-16.9)
[2016-09-22 06:01] LABS: Hematocrit 35.6 % (37.5-50.1); Mean Corpuscular HGB Conc 32.3 g/dL (31.6-35.5); Mean Corpuscular Hemoglobin 31.8 pg (28.0-33.3); Mean Corpuscular Volume 98.3 fL (83.0-100.0); Platelet Count 135 K/mcL (140-400); Red Blood Count 3.62 M/mcL (4.19-5.50); Red Cell Distribution Width 14.8 % (11.5-14.5)
[2016-09-22 06:20] LABS: Calcium 8.1 mg/dL (8.6-10.8); Monocytes # 0.5 K/mcL (0.0-1.3); Neutrophils # 23.5 K/mcL (1.6-8.9); Platelet Estimate Slight Decrease (Normal); Potassium 4.7 mEq/L (3.5-4.5)
[2016-09-22 06:21] LABS: Reactive Lymphocytes Present (Not Present)
--- NOTE | 2016-09-22 07:20 | Urology Progress Note ---
Date of Encounter: 09/22/16 Time of Encounter: 07:17 - Assessment and Plan (1) Nephrolithiasis Current Visit: Yes Status: Acute Assessment and plan: Will continue antiemetics and pain control If pain improved, we will see if he can be discharged home later today. (2) Hematuria Current Visit: Yes Status: Acute Assessment and plan: Continue solomon catheter. Urine is somewhat more clear today. Progress Note Narrative: Status post bilateral ureteroscopy, laser lithotripsy, and stent placement. POD #1. He is having some bladder spasms and nausea. Urine was bloody overnight, but getting more clear today. [address] Objective Initial Vital Signs Temp Pulse Resp BP Pulse Ox 97.9 F 53 18 164/77 95 09/21/16 08:05 09/21/16 08:05 09/21/16 08:05 09/21/16 08:05 09/21/16 08:05 - General physical appearance Present: well developed, well nourished, no distress - Respiratory Present: normal respiratory effort - Abdomen Present: soft - Genitourinary Present: normal penis with no external lesions Urine Appearance: Present: Hematuria (fruit punch to raheem aid color.) - Labs 09/22/16 05:19 09/22/16 05:19 Diabetes panel 09/22/16 Range/Units 05:19 Sodium 139 (136-145) mEq/L Potassium 4.7 H (3.5-4.5) mEq/L Chloride 109 (98-109) mEq/L Carbon Dioxide 21 (19-29) mEq/L BUN 28 H (8-26) mg/dL Creatinine 1.80 H (0.72-1.25) mg/dL Glucose 132 H (70-99) mg/dL Calcium 8.1 L (8.6-10.8) mg/dL Calcium panel 09/22/16 Range/Units 05:19 Calcium 8.1 L (8.6-10.8) mg/dL Pituitary panel 09/22/16 Range/Units 05:19 Sodium 139 (136-145) mEq/L Potassium 4.7 H (3.5-4.5) mEq/L Chloride 109 (98-109) mEq/L Carbon Dioxide 21 (19-29) mEq/L BUN 28 H (8-26) mg/dL Creatinine 1.80 H (0.72-1.25) mg/dL Glucose 132 H (70-99) mg/dL Calcium 8.1 L (8.6-10.8) mg/dL Adrenal panel 09/22/16 Range/Units 05:19 Sodium 139 (136-145) mEq/L Potassium 4.7 H (3.5-4.5) mEq/L Chloride 109 (98-109) mEq/L Carbon Dioxide 21 (19-29) mEq/L BUN 28 H (8-26) mg/dL Creatinine 1.80 H (0.72-1.25) mg/dL Glucose 132 H (70-99) mg/dL Calcium 8.1 L (8.6-10.8) mg/dL - VTE Documentation of Mechanical Device: Intermittent pneumatic compression device Consult Discharge Plan - Plan Additional Instructions: 1. The patient can follow up in 1 week for a cystoscopy and stent removal. 2. He should expect to feel flank pain with voiding. 3. The patient should call for any fevers, chills, nausea, emesis, or uncontrolled pain. 4. Please provide a work excuse if necessary for up to 1 week off. Please provide catheter care instructions - leg bag, night bag, leg strap and how to change the bags appropriately. He can remove his Solomon catheter tomorrow at 7 AM. Please provide a 10 mL syringe and instructions. Alternatively, he can follow up tomorrow in our office for us to remove it. Home Medication List * You have been given a list of your current medications. If you have changes in your medications, update your list. * Provide a list of current medications to your primary care physician. * Carry a copy of your current medications with you in case of an emergency. Referrals: Jason Palmer MD [Partnered Physician] - Ish Scherer DO [Primary Care Provider] -
[2016-09-22] MEDS: Ondansetron 4 MG/2 ML VIAL IVP PRN ×2 (08:00→17:10)
[2016-09-22] MEDS: levoFLOXacin 500 MG TABLET PO SCH (09:22)
[2016-09-22] MEDS ORDERED: Bisacodyl 10 MG RECTAL SUPPOSITORY RC ONE (12:31)
[2016-09-22] MEDS ORDERED: *HR* OxyCODONE/APAP 5/325 TABLET PO PRN (12:31)
[2016-09-22] MEDS: *HR* OxyCODONE/APAP 5/325 TABLET PO PRN (17:00)
[2016-09-23] MEDS: 0.9 % Sodium Chloride 1,000 ML IVC SCH (00:25)
[2016-09-23] MEDS: *HR* OxyCODONE/APAP 5/325 TABLET PO PRN ×2 (00:25→09:33)
[2016-09-23] MEDS: *HR* HYDROmorphone 2 MG/ML SYRINGE IVP PRN ×2 (03:49→05:57)
--- NOTE | 2016-09-23 07:05 | Urology Progress Note ---
Date of Encounter: 09/23/16 Time of Encounter: 07:03 - Assessment and Plan (1) Nephrolithiasis Current Visit: Yes Status: Acute Assessment and plan: POD #2. Still with some flank pain. Will try to transition to PO oxycodone for his pain. (2) Hematuria Current Visit: Yes Status: Acute Assessment and plan: Feng removed today. Will reassess later today how his urine looks. Will hep lock IVF. Progress Note Narrative: Pain is controlled with dilaudid. Urine is emt basic pink today. Objective Initial Vital Signs Temp Pulse Resp BP Pulse Ox 97.9 F 53 18 164/77 95 09/21/16 08:05 09/21/16 08:05 09/21/16 08:05 09/21/16 08:05 09/21/16 08:05 - General physical appearance Present: well developed, well nourished, no distress - Respiratory Present: normal respiratory effort - Abdomen Present: soft - Genitourinary Present: normal penis with no external lesions Urine Appearance: Present: Hematuria (light pink to clear in tubing.) - Labs 09/22/16 05:19 09/22/16 05:19 - VTE Documentation of Mechanical Device: Intermittent pneumatic compression device Consult Discharge Plan - Plan Additional Instructions: 1. The patient can follow up in 1 week for a cystoscopy and stent removal. 2. He should expect to feel flank pain with voiding. 3. The patient should call for any fevers, chills, nausea, emesis, or uncontrolled pain. 4. Please provide a work excuse if necessary for up to 1 week off. Please provide catheter care instructions - leg bag, night bag, leg strap and how to change the bags appropriately. He can remove his Feng catheter tomorrow at 7 AM. Please provide a 10 mL syringe and instructions. Alternatively, he can follow up tomorrow in our office for us to remove it. Home Medication List * You have been given a list of your current medications. If you have changes in your medications, update your list. * Provide a list of current medications to your primary care physician. * Carry a copy of your current medications with you in case of an emergency. Referrals: Jason Palmer MD [Partnered Physician] - Ish Scherer DO [Primary Care Provider] -
[2016-09-23] MEDS: levoFLOXacin 500 MG TABLET PO SCH (09:33)
[2016-09-23] MEDS: Ringers Solution, Lactated 1,000 ML IVC SCH (12:17)
[2016-09-23 15:52] VITALS: BP 138/69
--- NOTE | 2016-09-23 17:09 | Discharge Summary ---
Date of Encounter: 09/23/16 Time of Encounter: 17:07 - Discharge Diagnosis (1) Nephrolithiasis Priority: Primary Status: Acute (2) Hematuria Priority: Secondary Status: Acute - Discharge Medications Home Medications: Atorvastatin [Lipitor] 10 mg PO HS 07/17/16 [History] Tamsulosin HCl [Flomax] 0.4 mg PO DAILY 07/17/16 [History] Atenolol [Tenormin] 25 mg PO DAILY #30 tablet 07/21/16 [Rx] Docusate [Colace] 100 mg PO BID #60 capsule 09/21/16 [Rx] Levofloxacin [Levaquin] 500 mg PO DAILY #3 tablet 09/21/16 [Rx] Oxycodone HCl/Acetaminophen [Percocet 5-325 mg Tablet] 1 each PO Q4H PRN #25 tablet 09/21/16 [Rx] Allergies/Adverse Reactions: Allergies Penicillins [PCN] Allergy (Verified 09/21/16 08:25) Hives - Impressions ITS Impressions Retrograde Pyelogram 09/21/16 09:35 IMPRESSION: Intraprocedural fluoroscopic spot images as above. See separate procedure report for more information. D/ / 09/21/2016 13:07:17 Rich Carpenter MD / lopez Interpreting Provider: Rich Carpenter MD Date of admission: 09/21/16 15:17 Primary care physician: Ish Scherer Discharging clinician: Jason Palmer Anticipated date of discharge: 09/23/16 - Patient Status Disposition: Home, Self-Care Condition: Good Functional capacity at discharge: independent ambulation Overall status at discharge: patient is progressing back to baseline - Discharge Instructions Follow Up With: Ish Scherer DO [Primary Care Provider] - Jason Palmer MD [Partnered Physician] - (Wednesday for a cystoscopy and stent removal.) Additional Instructions: 1. The patient can follow up on 09/28/2016 for a cystoscopy and stent removal. 2. He should expect to feel flank pain with voiding. 3. The patient should call for any fevers, chills, nausea, emesis, or uncontrolled pain. 4. Please provide a work excuse if necessary for up to 1 week off. Home Medication List * You have been given a list of your current medications. If you have changes in your medications, update your list. * Provide a list of current medications to your primary care physician. * Carry a copy of your current medications with you in case of an emergency. - Diet and Activity Activity: increase activity as tolerated Diet: advance to your usual diet - Hospital Course Hospital course: Mr. Cedeno is a 81 year old male who underwent bilateral ureteroscopy, laser lithotripsy, and stent placement on 09/21/2016. He had some hematuria afterwards and was admitted for observation. He had some pain control issues as well. On 09/23/2016 his urine was more clear and his catheter was removed. He was then able to urinate and was discharged home in good condition. - Time Spent with Patient Total time spent providing and/or coordinating discharge services: Less than 30 minutes Exam Initial Vital Signs Temp Pulse Resp BP Pulse Ox 97.9 F 53 18 164/77 95 09/21/16 08:05 09/21/16 08:05 09/21/16 08:05 09/21/16 08:05 09/21/16 08:05 - General physical appearance Present: well developed, well nourished, no distress - Eyes Absent: icteric - ENT Present: normal nares - Neck Present: trachea midline - Respiratory Present: normal respiratory effort - Cardiovascular Cardiovascular exam IM: RRR - Abdomen Abdomen: Present: soft - VTE Documentation of Mechanical Device: Intermittent pneumatic compression device
[2016-09-23] MEDS ORDERED: *HR* Heparin 5,000 UNIT/ML VIAL SQ SCH (18:00)
== END 2016-09-23 18:17 | disposition home or self-care (01) ==
LOC: SAMDAY 07:43 → 3ANU 07:43
PROVIDERS: ADMIT Urology; ATTEND Urology

== ENCOUNTER 2021-11-23 14:12 | Inpatient (IN) ==
[2021-11-23 15:17] LABS: Basophils % 0.1 %; Eosinophils % 0.2 %; Hematocrit 31.7 % (37.5-50.1); Hemoglobin 10.5 g/dL (12.9-16.9); Lymphocytes # 1.6 K/mcL (0.6-4.6); Mean Corpuscular HGB Conc 33.1 g/dL (31.6-35.5); Mean Corpuscular Hemoglobin 32.8 pg (28.0-33.3); Mean Corpuscular Volume 99.1 fL (83.0-100.0); Mean Platelet Volume 9.9 fL (9.4-12.4); Monocytes # 1.1 K/mcL (0.0-1.3); Monocytes % 10.4 %; Neutrophils # 7.3 K/mcL (1.6-8.9); Platelet Count 130 K/mcL (140-400); Red Cell Distribution Width 16.2 % (11.5-14.5); Segmented Neutrophils % 72.3 %; White Blood Count 10.1 K/mcL (4.3-11.1)
[2021-11-23 15:42] LABS: Alanine Aminotransferase 24 Units/L (7-52); Albumin/Globulin Ratio 1.4 (1.1-2.2); Alkaline Phosphatase 227 Units/L (34-104); Aspartate Amino Transferase 33 Units/L (13-39); BUN/Creatinine Ratio 25 (6-26); Bilirubin,Direct 0.1 mg/dL (0.0-0.2); Bilirubin,Indirect 0.7 mg/dL (0.0-1.0); Bilirubin,Total 0.8 mg/dL (0.3-1.0); Blood Urea Nitrogen 36 mg/dL (8-23); Carbon Dioxide 27 mEq/L (23-29); Chloride 105 mEq/L (98-107); Creatine Kinase 118 Units/L (30-223); Ethanol < 10 mg/dL (Less than 10); Globulin 2.2 g/dL (2.4-3.5); Glucose 137 mg/dL (70-105); Osmolality,Calculated 294 (280-300); Potassium 4.1 mEq/L (3.5-5.1); Sodium 137 mEq/L (136-145); Total Protein 5.2 g/dL (6.4-8.9); Troponin I < 0.03 ng/mL (< 0.04); eGFR For African Americans 57 (> 60); eGFR For Non-African Americans 47 (> 60)
[2021-11-23 16:43] LABS: Bacteria,Urine Few per hpf (None-Few); Bilirubin,Urine Negative (Negative); Blood,Urine Negative (Negative); Clarity,Urine Turbid (Clear); Color,Urine Yellow (Yellow); Glucose,Urine (UA) Normal (Normal); Hyaline Casts,Urine Few per lpf (None Seen); Ketones,Urine Negative (Negative); Leukocyte Esterase,Urine Negative (Negative); Mucus,Urine Few per lpf (None-Few); Nitrite,Urine Negative (Negative); Protein,Urine 50 mg/dL (Neg-Trace); RBC,Urine 0-3 per hpf (0-3); Specific Gravity,Urine 1.028 (1.010-1.025); Squamous Epithelial Cell,Urine Few per hpf (None-Few); Urobilinogen,Urine Normal (Normal); WBC,Urine 0-3 per hpf (0-3)
[2021-11-23 16:50] LABS: Amphetamine Screen,Urine Negative ng/mL (Cutoff=1000); Barbiturate Screen,Urine Negative ng/mL (Cutoff=200); Benzodiazepines Screen,Urine Negative ng/mL (Cutoff=200); Cannabinoid Screen,Urine Negative ng/mL (Cutoff = 50); Cocaine Screen,Urine Negative ng/mL (Cutoff= 300); Opiate Screen,Urine Negative ng/mL (Cutoff=300); Phencyclidine Screen,Urine Negative ng/mL (Cutoff=25)
[2021-11-23] MEDS ORDERED: Naloxone 0.4 MG/ML INJ IVP PRN (20:34)
[2021-11-23] MEDS ORDERED: Acetaminophen 325 MG TABLET PO PRN (20:34)
[2021-11-23] MEDS ORDERED: Ondansetron 4 MG/2 ML VIAL IVP PRN (20:34)
[2021-11-23] MEDS ORDERED: *HR* OxyCODONE/APAP 5/325 TABLET PO PRN (21:48)
[2021-11-23] MEDS: 0.9 % Sodium Chloride 1,000 ML IVC SCH (21:58)
[2021-11-23] MEDS ORDERED: Perflutren Lipid Microsphere 1.3 ML in 0.9 % Sodium Chloride 8.7 ML IVP PRN (23:51)
[2021-11-24 01:28] LABS: Adenovirus Not Detected (Not Detect); Coronavirus 229E Not Detected (Not Detect); Coronavirus HKU1 Not Detected (Not Detect); Coronavirus NL63 Not Detected (Not Detect); Coronavirus OC43 Not Detected (Not Detect); Human Metapneumovirus Not Detected (Not Detect); Human Rhinovirus/Enterovirus Not Detected (Not Detect); Influenza A Subtype 2009 H1 Not Detected (Not Detect); Influenza B Not Detected (Not Detect); Parainfluenza Virus 1 Not Detected (Not Detect); Parainfluenza Virus 2 Not Detected (Not Detect); Parainfluenza Virus 3 Not Detected (Not Detect); Parainfluenza Virus 4 Not Detected (Not Detect); SARS-CoV-2 Not Detected (Not Detect)
[2021-11-24 01:29] LABS: Bordetella Pertussis Not Detected (Not Detect); Chlamydophila pneumoniae Not Detected (Not Detect); Mycoplasma pneumoniae Not Detected (Not Detect); Respiratory Syncytial Virus Not Detected (Not Detect)
[2021-11-24 02:07] LABS: BUN/Creatinine Ratio 27 (6-26); Blood Urea Nitrogen 34 mg/dL (8-23); Calcium 7.7 mg/dL (8.6-10.3); Carbon Dioxide 27 mEq/L (23-29); Chloride 106 mEq/L (98-107); Glucose 156 mg/dL (70-105); Magnesium 2.1 mg/dL (1.6-2.6); Osmolality,Calculated 297 (280-300); Phosphorous 3.4 mg/dL (2.7-4.5); Sodium 138 mEq/L (136-145); eGFR For African Americans > 60 (> 60); eGFR For Non-African Americans 53 (> 60)
[2021-11-24 02:17] LABS: Basophils % 0.1 %; Eosinophils # 0.1 K/mcL (0.0-0.6); Eosinophils % 0.6 %; Hematocrit 29.3 % (37.5-50.1); Hemoglobin 9.5 g/dL (12.9-16.9); Immature Platelets 3.3 % (1.1-6.1); Lymphocytes # 1.6 K/mcL (0.6-4.6); Lymphocytes % 17.9 %; Mean Corpuscular HGB Conc 32.4 g/dL (31.6-35.5); Mean Corpuscular Hemoglobin 32.4 pg (28.0-33.3); Mean Platelet Volume 9.8 fL (9.4-12.4); Monocytes # 0.8 K/mcL (0.0-1.3); Monocytes % 8.8 %; Neutrophils # 6.3 K/mcL (1.6-8.9); Nucleated Red Blood Cells 0.2 /100 WBC (0); Platelet Count 132 K/mcL (140-400); Red Blood Count 2.93 M/mcL (4.19-5.50); Red Cell Distribution Width 16.2 % (11.5-14.5); Segmented Neutrophils % 71.6 %; White Blood Count 8.8 K/mcL (4.3-11.1)
[2021-11-24 02:20] LABS: Thyroid Stimulating Hormone 0.585 mcIU/mL (0.340-5.600)
[2021-11-24 02:30] LABS: Folate 9.2 ng/mL (3.0-16.0)
[2021-11-24] MEDS ORDERED: Ipratropium/Albuterol Neb 3 ML IH PRN (02:36)
[2021-11-24] MEDS: Doxycycline 100 MG in 0.9 % Sodium Chloride Mini Bag 100 ML IVPB SCH ×2 (05:41→18:21)
[2021-11-24] MEDS: atenoloL 50 MG TABLET PO SCH (09:42)
[2021-11-24] MEDS: 0.9 % Sodium Chloride 1,000 ML IVC SCH (09:45)
[2021-11-24] MEDS: Gabapentin 400 MG CAPSULE PO SCH ×2 (09:46→20:14)
[2021-11-24] MEDS: Finasteride 5 MG TABLET PO SCH (09:46)
[2021-11-25 02:02] LABS: Basophils % 0.2 %; Eosinophils # 0.1 K/mcL (0.0-0.6); Eosinophils % 1.1 %; Hematocrit 28.7 % (37.5-50.1); Hemoglobin 9.3 g/dL (12.9-16.9); Immature Granulocytes % 0.6 % (0-4); Lymphocytes # 1.9 K/mcL (0.6-4.6); Lymphocytes % 22.2 %; Mean Corpuscular HGB Conc 32.4 g/dL (31.6-35.5); Mean Corpuscular Hemoglobin 32.3 pg (28.0-33.3); Mean Corpuscular Volume 99.7 fL (83.0-100.0); Mean Platelet Volume 10.1 fL (9.4-12.4); Monocytes # 0.8 K/mcL (0.0-1.3); Monocytes % 9.4 %; Neutrophils # 5.6 K/mcL (1.6-8.9); Platelet Count 138 K/mcL (140-400); Red Blood Count 2.88 M/mcL (4.19-5.50); Segmented Neutrophils % 66.5 %; White Blood Count 8.4 K/mcL (4.3-11.1)
[2021-11-25 02:19] LABS: % Iron Saturation 11 % (20-55); Iron 16 mcg/dL (65-175); Transferrin 106 mg/dL (203-362)
[2021-11-25 02:41] LABS: Ferritin 533 ng/mL (20-250)
[2021-11-25] MEDS: Doxycycline 100 MG in 0.9 % Sodium Chloride Mini Bag 100 ML IVPB SCH ×2 (05:30→17:34)
[2021-11-25] MEDS: Gabapentin 400 MG CAPSULE PO SCH ×2 (08:34→21:31)
[2021-11-25] MEDS: Finasteride 5 MG TABLET PO SCH (08:34)
[2021-11-25] MEDS: atenoloL 50 MG TABLET PO SCH (08:42)
[2021-11-26 03:26] LABS: Basophils % 0.3 %; Eosinophils # 0.2 K/mcL (0.0-0.6); Eosinophils % 1.9 %; Hematocrit 30.5 % (37.5-50.1); Hemoglobin 9.8 g/dL (12.9-16.9); Lymphocytes # 2.1 K/mcL (0.6-4.6); Lymphocytes % 25.7 %; Mean Corpuscular HGB Conc 32.1 g/dL (31.6-35.5); Mean Corpuscular Hemoglobin 31.9 pg (28.0-33.3); Mean Corpuscular Volume 99.3 fL (83.0-100.0); Mean Platelet Volume 10.2 fL (9.4-12.4); Monocytes # 0.7 K/mcL (0.0-1.3); Monocytes % 8.8 %; Platelet Count 177 K/mcL (140-400); Red Blood Count 3.07 M/mcL (4.19-5.50); Segmented Neutrophils % 62.3 %
[2021-11-26] MEDS: Doxycycline 100 MG in 0.9 % Sodium Chloride Mini Bag 100 ML IVPB SCH ×2 (05:30→22:04)
[2021-11-26] MEDS: Gabapentin 400 MG CAPSULE PO SCH ×2 (09:21→22:05)
[2021-11-26] MEDS: Finasteride 5 MG TABLET PO SCH (09:21)
[2021-11-26] MEDS: atenoloL 50 MG TABLET PO SCH (09:21)
[2021-11-26] MEDS: Sennosides/Docusate Sodium TABLET PO SCH (14:59)
[2021-11-26 20:51] VITALS: TEMP 97.9
[2021-11-27 02:50] LABS: Hematocrit 28.5 % (37.5-50.1); Hemoglobin 9.4 g/dL (12.9-16.9); Mean Corpuscular Hemoglobin 32.4 pg (28.0-33.3); Mean Corpuscular Volume 98.3 fL (83.0-100.0); Mean Platelet Volume 10.1 fL (9.4-12.4); Platelet Count 191 K/mcL (140-400); Red Cell Distribution Width 15.9 % (11.5-14.5); White Blood Count 8.1 K/mcL (4.3-11.1)
[2021-11-27 03:02] LABS: BUN/Creatinine Ratio 24 (6-26); Blood Urea Nitrogen 27 mg/dL (8-23); Carbon Dioxide 25 mEq/L (23-29); Chloride 109 mEq/L (98-107); Glucose 101 mg/dL (70-105); Osmolality,Calculated 293 (280-300); Potassium 4.1 mEq/L (3.5-5.1); Sodium 139 mEq/L (136-145); eGFR For African Americans > 60 (> 60); eGFR For Non-African Americans > 60 (> 60)
[2021-11-27 04:25] VITALS: PULSE 48
[2021-11-27] MEDS: Doxycycline 100 MG in 0.9 % Sodium Chloride Mini Bag 100 ML IVPB SCH (06:38)
[2021-11-27 06:45] VITALS: BP 139/63; O2SAT 95
[2021-11-27] MEDS: atenoloL 50 MG TABLET PO SCH (07:18)
[2021-11-27] MEDS: Gabapentin 400 MG CAPSULE PO SCH (07:19)
[2021-11-27] MEDS: Sennosides/Docusate Sodium TABLET PO SCH (07:19)
[2021-11-27] MEDS: Finasteride 5 MG TABLET PO SCH (07:19)
[2021-11-27 10:28] LABS: Influenza A PCR Negative (Negative); Influenza B PCR Negative (Negative); Resp. Syncytial Virus PCR Negative (Negative)
[2021-11-27 10:29] LABS: SARS-CoV-2 by PCR (In House) Negative (Negative)
== END 2021-11-27 12:10 | DRG 948 ==
LOC: EMEROOARM 14:12 → 3NENU 14:12 → SUATTDRO 20:31 → 3NENU 21:04
PROVIDERS: ADMIT Internal Medicine; ATTEND Internal Medicine

== ENCOUNTER 2022-02-13 15:18 | Inpatient (IN) ==
[2022-02-14] MEDS ORDERED: Naloxone 0.4 MG/ML INJ IVP PRN (01:25)
[2022-02-14] MEDS ORDERED: Ondansetron 4 MG/2 ML VIAL IVP PRN (01:25)
[2022-02-14] MEDS ORDERED: Benzonatate 100 MG CAPSULE PO PRN (01:33)
[2022-02-14 03:18] LABS: Immature Granulocytes % 2.4 % (0-4); Red Blood Count 3.02 M/mcL (4.19-5.50); Red Cell Distribution Width 17.9 % (11.5-14.5)
[2022-02-14 03:20] LABS: Basophils % 0.4 %; Hematocrit 29.1 % (37.5-50.1); Hemoglobin 9.5 g/dL (12.9-16.9); Immature Platelets 4.7 % (1.1-6.1); Lymphocytes # 1.4 K/mcL (0.6-4.6); Lymphocytes % 14.2 %; Mean Corpuscular HGB Conc 32.6 g/dL (31.6-35.5); Mean Corpuscular Hemoglobin 31.5 pg (28.0-33.3); Mean Corpuscular Volume 96.4 fL (83.0-100.0); Mean Platelet Volume 9.2 fL (9.4-12.4); Monocytes # 0.6 K/mcL (0.0-1.3); Monocytes % 6.3 %; Neutrophils # 7.7 K/mcL (1.6-8.9); Nucleated Red Blood Cells 0.2 /100 WBC (0); Segmented Neutrophils % 76.7 %
[2022-02-14 03:24] LABS: INR 1.4; Prothrombin Time 15.5 Seconds (9.4-12.1)
[2022-02-14 03:48] LABS: Platelet Count 64 K/mcL (140-400)
[2022-02-14 03:53] LABS: Alanine Aminotransferase 25 Units/L (7-52); Albumin 2.3 g/dL (3.5-5.7); Alkaline Phosphatase 455 Units/L (34-104); Aspartate Amino Transferase 56 Units/L (13-39); BUN/Creatinine Ratio 29 (6-26); Bilirubin,Direct 0.2 mg/dL (0.0-0.2); Bilirubin,Indirect 0.5 mg/dL (0.0-1.0); Bilirubin,Total 0.7 mg/dL (0.3-1.0); Blood Urea Nitrogen 38 mg/dL (8-23); C-Reactive Protein 177 mg/L (Less than 10); Calcium 7.3 mg/dL (8.6-10.3); Carbon Dioxide 27 mEq/L (23-29); Chloride 107 mEq/L (98-107); Creatine Kinase 209 Units/L (30-223); Ferritin > 1500 ng/mL (20-250); Globulin 2.4 g/dL (2.4-3.5); Glucose 105 mg/dL (70-105); Lactate Dehydrogenase 1789 Units/L (140-271); Osmolality,Calculated 297 (280-300); Phosphorous 4.9 mg/dL (2.7-4.5); Potassium 4.9 mEq/L (3.5-5.1); Sodium 139 mEq/L (136-145); Total Protein 4.7 g/dL (6.4-8.9)
[2022-02-14 04:16] LABS: Estimated Average Glucose 134 mg/dl; Hemoglobin A1C 6.3 %
[2022-02-14] MEDS: *HR* Enoxaparin 80 MG/0.8 ML SYRINGE SQ SCH ×2 (10:09→20:00)
[2022-02-14] MEDS: Azithromycin 500 MG in 0.9 % Sodium Chloride 250 ML IVPB SCH (10:11)
[2022-02-14] MEDS: cefTRIAXone 1,000 MG in 0.9 % Sodium Chloride Mini Bag 100 ML IVPB SCH (10:14)
[2022-02-14 10:55] LABS: Bacteria,Urine Few per hpf (None-Few); Bilirubin,Urine Negative (Negative); Blood,Urine Moderate (Negative); Clarity,Urine Turbid (Clear); Color,Urine Yellow (Yellow); Glucose,Urine (UA) Normal (Normal); Granular Casts,Urine Moderate per lpf (None Seen); Hyaline Casts,Urine Few per lpf (None Seen); Ketones,Urine Negative (Negative); Leukocyte Esterase,Urine Small (Negative); Mucus,Urine Few per lpf (None-Few); Nitrite,Urine Positive (Negative); Protein,Urine 70 mg/dL (Neg-Trace); RBC,Urine 0-3 per hpf (0-3); Specific Gravity,Urine 1.022 (1.010-1.025); Squamous Epithelial Cell,Urine Few per hpf (None-Few); Urobilinogen,Urine Normal (Normal)
[2022-02-14] MEDS ORDERED: 0.9 % Sodium Chloride 1,000 ML IVC SCH (19:45)
[2022-02-14] MEDS: Finasteride 5 MG TABLET PO SCH (20:00)
[2022-02-14] MEDS: Gabapentin 400 MG CAPSULE PO SCH (20:01)
[2022-02-15] MEDS: Gabapentin 400 MG CAPSULE PO SCH ×3 (09:11→22:05)
[2022-02-15] MEDS: Finasteride 5 MG TABLET PO SCH (09:11)
[2022-02-15] MEDS: *HR* Enoxaparin 80 MG/0.8 ML SYRINGE SQ SCH ×2 (09:12→22:05)
[2022-02-15] MEDS: cefTRIAXone 1,000 MG in 0.9 % Sodium Chloride Mini Bag 100 ML IVPB SCH (09:13)
[2022-02-15] MEDS: Azithromycin 500 MG in 0.9 % Sodium Chloride 250 ML IVPB SCH (09:17)
[2022-02-15] MEDS: Acetaminophen 325 MG TABLET PO PRN (15:12)
[2022-02-16] MEDS: Gabapentin 400 MG CAPSULE PO SCH ×3 (07:55→20:26)
[2022-02-16] MEDS: Finasteride 5 MG TABLET PO SCH (07:55)
[2022-02-16] MEDS: cefTRIAXone 1,000 MG in 0.9 % Sodium Chloride Mini Bag 100 ML IVPB SCH (07:57)
[2022-02-16] MEDS: Azithromycin 500 MG in 0.9 % Sodium Chloride 250 ML IVPB SCH (08:00)
[2022-02-16 08:53] LABS: Basophils % 0.1 %; Calcium 7.1 mg/dL (8.6-10.3); Hematocrit 29.1 % (37.5-50.1); Hemoglobin 9.3 g/dL (12.9-16.9); Immature Granulocytes % 1.7 % (0-4); Lymphocytes # 1.4 K/mcL (0.6-4.6); Lymphocytes % 18.7 %; Mean Corpuscular Hemoglobin 31.3 pg (28.0-33.3); Mean Platelet Volume 11.4 fL (9.4-12.4); Monocytes # 0.4 K/mcL (0.0-1.3); Monocytes % 5.2 %; Neutrophils # 5.7 K/mcL (1.6-8.9); Potassium 5.1 mEq/L (3.5-5.1); Red Blood Count 2.97 M/mcL (4.19-5.50); Red Cell Distribution Width 17.4 % (11.5-14.5); Segmented Neutrophils % 74.3 %; White Blood Count 7.7 K/mcL (4.3-11.1)
[2022-02-16 10:01] LABS: Platelet Count 73 K/mcL (140-400)
[2022-02-16] MEDS: *HR* Enoxaparin 80 MG/0.8 ML SYRINGE SQ SCH ×2 (10:51→20:27)
[2022-02-16] MEDS: Metoprolol XL (24 HR) Succ 25 MG TAB.ER.24H PO SCH (14:19)
[2022-02-16 18:11] LABS: Basophils % 0.3 %; Hematocrit 29.1 % (37.5-50.1); Hemoglobin 9.4 g/dL (12.9-16.9); Immature Granulocytes % 1.8 % (0-4); Lymphocytes # 0.9 K/mcL (0.6-4.6); Mean Corpuscular HGB Conc 32.3 g/dL (31.6-35.5); Mean Corpuscular Hemoglobin 31.3 pg (28.0-33.3); Mean Platelet Volume 12.2 fL (9.4-12.4); Monocytes # 0.3 K/mcL (0.0-1.3); Monocytes % 4.2 %; Neutrophils # 5.9 K/mcL (1.6-8.9); Red Cell Distribution Width 17.5 % (11.5-14.5); Segmented Neutrophils % 81.7 %; White Blood Count 7.2 K/mcL (4.3-11.1)
[2022-02-16 18:12] LABS: Platelet Count 88 K/mcL (140-400)
[2022-02-16 19:53] LABS: INR 1.2
[2022-02-16] MEDS: Acetaminophen 325 MG TABLET PO PRN (20:26)
[2022-02-17 03:46] LABS: Hemoglobin 8.8 g/dL (12.9-16.9)
[2022-02-17 03:49] LABS: Basophils % 0.3 %; Immature Granulocytes % 1.6 % (0-4); Immature Platelets 5.3 % (1.1-6.1); Lymphocytes # 1.4 K/mcL (0.6-4.6); Mean Corpuscular HGB Conc 32.6 g/dL (31.6-35.5); Mean Corpuscular Hemoglobin 31.7 pg (28.0-33.3); Mean Corpuscular Volume 97.1 fL (83.0-100.0); Mean Platelet Volume 10.9 fL (9.4-12.4); Monocytes % 5.8 %; Neutrophils # 5.7 K/mcL (1.6-8.9); Red Blood Count 2.78 M/mcL (4.19-5.50); Red Cell Distribution Width 17.3 % (11.5-14.5); Segmented Neutrophils % 74.3 %; White Blood Count 7.7 K/mcL (4.3-11.1)
[2022-02-17 03:56] LABS: Calcium 7.1 mg/dL (8.6-10.3); Potassium 4.8 mEq/L (3.5-5.1)
[2022-02-17 03:58] LABS: Monocytes # 0.5 K/mcL (0.0-1.3); Platelet Count 86 K/mcL (140-400)
[2022-02-17] MEDS: dexAMETHasone 4 MG TABLET PO SCH (08:31)
[2022-02-17] MEDS: Finasteride 5 MG TABLET PO SCH (08:32)
[2022-02-17] MEDS: Metoprolol XL (24 HR) Succ 25 MG TAB.ER.24H PO SCH (08:32)
[2022-02-17] MEDS: Gabapentin 400 MG CAPSULE PO SCH ×3 (08:32→22:22)
[2022-02-17] MEDS: cefTRIAXone 1,000 MG in 0.9 % Sodium Chloride Mini Bag 100 ML IVPB SCH (08:33)
[2022-02-17] MEDS: *HR* Enoxaparin 80 MG/0.8 ML SYRINGE SQ SCH (08:33)
[2022-02-17] MEDS: Bicalutamide 50 MG TABLET PO SCH (08:40)
[2022-02-17] MEDS ORDERED: Azithromycin 250 MG TABLET PO SCH (09:00)
[2022-02-18] MEDS: *HR* Enoxaparin 40 MG/0.4 ML SYRINGE SQ SCH (04:53)
[2022-02-18 05:41] LABS: Basophils % 0.2 %; Mean Corpuscular Volume 99.1 fL (83.0-100.0)
[2022-02-18 05:44] LABS: Eosinophils % 0.2 %; Hematocrit 22.5 % (37.5-50.1); Hemoglobin 7.2 g/dL (12.9-16.9); Immature Granulocytes % 2.7 % (0-4); Immature Platelets 3.4 % (1.1-6.1); Lymphocytes # 1.3 K/mcL (0.6-4.6); Lymphocytes % 23.8 %; Mean Corpuscular Hemoglobin 31.7 pg (28.0-33.3); Mean Platelet Volume 11.2 fL (9.4-12.4); Monocytes # 0.3 K/mcL (0.0-1.3); Monocytes % 5.1 %; Nucleated Red Blood Cells 0.4 /100 WBC (0); Red Blood Count 2.27 M/mcL (4.19-5.50); Red Cell Distribution Width 17.3 % (11.5-14.5); White Blood Count 5.5 K/mcL (4.3-11.1)
[2022-02-18 05:52] LABS: Neutrophils # 3.7 K/mcL (1.6-8.9); Platelet Count 64 K/mcL (140-400)
[2022-02-18 06:05] LABS: Calcium 7.4 mg/dL (8.6-10.3); Potassium 4.6 mEq/L (3.5-5.1)
[2022-02-18] MEDS: Metoprolol XL (24 HR) Succ 25 MG TAB.ER.24H PO SCH (11:43)
[2022-02-18] MEDS: dexAMETHasone 4 MG TABLET PO SCH (11:45)
[2022-02-18] MEDS: Gabapentin 400 MG CAPSULE PO SCH ×3 (11:45→20:16)
[2022-02-18] MEDS: Finasteride 5 MG TABLET PO SCH (11:45)
[2022-02-18] MEDS ORDERED: Barium Sulfate (Liquid Polibar Plus) 1 BOTTLE ORAL.SUSP RC ONE (12:35)
[2022-02-18] MEDS ORDERED: Simethicone/Sodium Bic/Citr Ac 1 EACH GRAN.EF.PK PO ONE (12:35)
[2022-02-18] MEDS: Bicalutamide 50 MG TABLET PO SCH (15:49)
[2022-02-18] MEDS ORDERED: E-Z-PAQUE (BARIUM SULF) SUSP 1 BOTTLE PO ONE (19:27)
[2022-02-18] MEDS ORDERED: E-Z-HD (BARIUM SULF) SUSPENSION PO ONE (19:27)
[2022-02-19] MEDS: *HR* Enoxaparin 40 MG/0.4 ML SYRINGE SQ SCH (05:22)
[2022-02-19 09:31] LABS: Kappa Qnt Free Light Chains 63.7 mg/L (3.30-19.40); Lambda Qnt Free Light Chains 98.52 mg/L (5.71-26.30)
[2022-02-19] MEDS: Finasteride 5 MG TABLET PO SCH (10:02)
[2022-02-19] MEDS: Gabapentin 400 MG CAPSULE PO SCH ×3 (10:03→21:59)
[2022-02-19] MEDS: Bicalutamide 50 MG TABLET PO SCH (10:03)
[2022-02-19] MEDS: Metoprolol XL (24 HR) Succ 25 MG TAB.ER.24H PO SCH (10:03)
[2022-02-19 17:19] VITALS: TEMP 97.1
[2022-02-19] MEDS: Sennosides 8.6 MG TABLET PO SCH (21:59)
[2022-02-20 01:39] LABS: Basophils % 0.3 %; Eosinophils # 0.1 K/mcL (0.0-0.6); Eosinophils % 0.9 %; Hematocrit 26.9 % (37.5-50.1); Hemoglobin 8.7 g/dL (12.9-16.9); Immature Granulocytes % 3.4 % (0-4); Immature Reticulocyte % 35.7 % (11.0-38.0); Lymphocytes # 1.7 K/mcL (0.6-4.6); Lymphocytes % 24.1 %; Mean Corpuscular HGB Conc 32.3 g/dL (31.6-35.5); Mean Corpuscular Hemoglobin 31.6 pg (28.0-33.3); Mean Corpuscular Volume 97.8 fL (83.0-100.0); Mean Platelet Volume 10.2 fL (9.4-12.4); Monocytes # 0.3 K/mcL (0.0-1.3); Monocytes % 3.7 %; Neutrophils # 4.7 K/mcL (1.6-8.9); Nucleated Red Blood Cells 0.3 /100 WBC (0); Platelet Count 116 K/mcL (140-400); Red Blood Count 2.75 M/mcL (4.19-5.50); Red Cell Distribution Width 17.2 % (11.5-14.5); Retculocyte # 0.09 M/mcL (0.05-0.10); Reticulocyte % 3.1 % (1.6-2.8); Segmented Neutrophils % 67.6 %
[2022-02-20 01:54] LABS: INR 1.1
[2022-02-20 01:55] LABS: Albumin 2.1 g/dL (3.5-5.7); Albumin/Globulin Ratio 0.9 (1.1-2.2); Bilirubin,Total 0.6 mg/dL (0.3-1.0); Calcium 7.3 mg/dL (8.6-10.3); Globulin 2.3 g/dL (2.4-3.5); Potassium 4.5 mEq/L (3.5-5.1); Total Protein 4.4 g/dL (6.4-8.9)
[2022-02-20 01:56] LABS: Activated Partial Thrombo Time 31.2 Seconds (26.0-36.0)
[2022-02-20 02:08] LABS: Thyroid Stimulating Hormone 1.212 mcIU/mL (0.340-5.600)
[2022-02-20 02:18] LABS: Folate 5.6 ng/mL (3.0-16.0)
[2022-02-20 04:08] VITALS: O2SAT 94
[2022-02-20] MEDS: *HR* Enoxaparin 40 MG/0.4 ML SYRINGE SQ SCH (05:34)
[2022-02-20 07:55] VITALS: BP 123/58; PULSE 67
[2022-02-20] MEDS: Finasteride 5 MG TABLET PO SCH (09:56)
[2022-02-20] MEDS: Metoprolol XL (24 HR) Succ 25 MG TAB.ER.24H PO SCH (09:56)
[2022-02-20] MEDS: Sennosides 8.6 MG TABLET PO SCH (09:58)
[2022-02-20] MEDS: Gabapentin 400 MG CAPSULE PO SCH (09:58)
[2022-02-20] MEDS: Bicalutamide 50 MG TABLET PO SCH (10:03)
[2022-02-20 14:34] LABS: Alpha 2 Globulin (PEP) 0.36 g/dL (0.48-1.05); Beta Globulin (PEP) 0.48 g/dL (0.48-1.10)
[2022-02-20 14:52] LABS: IFE Reflexed IFE Done; Immunoglobulin A 193 mg/dL (68-408); Immunoglobulin G 1205 mg/dL (768-1632); Immunoglobulin M 113 mg/dL (35-263)
== END 2022-02-20 14:13 | DRG 177 ==
LOC: 2NENU → SUATTDRO 02-14 01:25
PROVIDERS: ADMIT Pharmacist; ATTEND Internal Medicine

== ENCOUNTER 2022-03-04 11:31 | Inpatient (IN) ==
[2022-03-04] MEDS ORDERED: Iopamidol - 370 500 ML MLS IVP ONE (12:42)
[2022-03-04 13:59] LABS: Basophils % 0.3 %; Eosinophils % 0.2 %; Hematocrit 30.1 % (37.5-50.1); Hemoglobin 9.3 g/dL (12.9-16.9); Immature Granulocytes % 0.7 % (0-4); Lymphocytes # 1.5 K/mcL (0.6-4.6); Lymphocytes % 24.3 %; Mean Corpuscular HGB Conc 30.9 g/dL (31.6-35.5); Mean Corpuscular Hemoglobin 31.7 pg (28.0-33.3); Mean Corpuscular Volume 102.7 fL (83.0-100.0); Mean Platelet Volume 9.1 fL (9.4-12.4); Monocytes # 0.3 K/mcL (0.0-1.3); Monocytes % 5.2 %; Neutrophils # 4.2 K/mcL (1.6-8.9); Platelet Count 168 K/mcL (140-400); Red Blood Count 2.93 M/mcL (4.19-5.50); Red Cell Distribution Width 19.5 % (11.5-14.5); Segmented Neutrophils % 69.3 %
[2022-03-04 14:23] LABS: Alanine Aminotransferase 38 Units/L (7-52); Albumin 2.5 g/dL (3.5-5.7); Albumin/Globulin Ratio 0.9 (1.1-2.2); Alkaline Phosphatase 198 Units/L (34-104); Aspartate Amino Transferase 24 Units/L (13-39); BUN/Creatinine Ratio 29 (6-26); Bilirubin,Indirect 0.4 mg/dL (0.0-1.0); Bilirubin,Total 0.4 mg/dL (0.3-1.0); Blood Urea Nitrogen 27 mg/dL (8-23); Calcium 7.9 mg/dL (8.6-10.3); Carbon Dioxide 31 mEq/L (23-29); Chloride 103 mEq/L (98-107); Globulin 2.8 g/dL (2.4-3.5); Glucose 104 mg/dL (70-105); Lipase 9 Units/L (11-82); Osmolality,Calculated 293 (280-300); Potassium 4.9 mEq/L (3.5-5.1); Sodium 139 mEq/L (136-145); Total Protein 5.3 g/dL (6.4-8.9); Troponin I < 0.03 ng/mL (< 0.04)
[2022-03-04 15:52] LABS: Bilirubin,Urine Negative (Negative); Blood,Urine Trace (Negative); Clarity,Urine Clear (Clear); Color,Urine Light-Yellow (Yellow); Glucose,Urine (UA) Normal (Normal); Ketones,Urine Negative (Negative); Leukocyte Esterase,Urine Small (Negative); Mucus,Urine Few per lpf (None-Few); Nitrite,Urine Positive (Negative); Protein,Urine Trace mg/dL (Neg-Trace); RBC,Urine 30-50 per hpf (0-3); Squamous Epithelial Cell,Urine Few per hpf (None-Few); Urobilinogen,Urine Normal (Normal)
[2022-03-04] MEDS ORDERED: cefTRIAXone 1,000 MG in Water for inj. (sterile) 10 ML IVP ONE (16:21)
[2022-03-04] MEDS ORDERED: MetroNIDAZOLE 500 MG/100 ML 500 MG/100 ML BAG IVPB ONE (16:24)
[2022-03-04] MEDS ORDERED: Azithromycin 500 MG in 0.9 % Sodium Chloride 250 ML IVPB ONE (16:25)
[2022-03-04] MEDS ORDERED: Naloxone 0.4 MG/ML INJ IVP PRN (16:41)
[2022-03-04] MEDS ORDERED: Melatonin 3 MG TABLET PO PRN (16:41)
[2022-03-04] MEDS ORDERED: Ondansetron ODT 4 MG TAB.RAPDIS SL PRN (16:41)
[2022-03-04] MEDS ORDERED: Sennosides/Docusate Sodium TABLET PO PRN (18:11)
[2022-03-04] MEDS: Ringers Solution, Lactated 1,000 ML IVC SCH (22:12)
[2022-03-05] MEDS: MetroNIDAZOLE 500 MG/100 ML 500 MG/100 ML BAG IVPB SCH ×3 (00:38→17:31)
[2022-03-05 07:02] LABS: Hematocrit 25.7 % (37.5-50.1); Hemoglobin 8.3 g/dL (12.9-16.9); Mean Corpuscular HGB Conc 32.3 g/dL (31.6-35.5); Mean Corpuscular Hemoglobin 33.3 pg (28.0-33.3); Mean Corpuscular Volume 103.2 fL (83.0-100.0); Mean Platelet Volume 9.7 fL (9.4-12.4); Platelet Count 144 K/mcL (140-400); Red Blood Count 2.49 M/mcL (4.19-5.50); Red Cell Distribution Width 19.3 % (11.5-14.5); White Blood Count 5.9 K/mcL (4.3-11.1)
[2022-03-05 07:44] LABS: Calcium 7.4 mg/dL (8.6-10.3); Phosphorous 3.4 mg/dL (2.7-4.5); Potassium 4.5 mEq/L (3.5-5.1)
[2022-03-05] MEDS: Ringers Solution, Lactated 1,000 ML IVC SCH (13:38)
[2022-03-05] MEDS ORDERED: Acetaminophen 325 MG TABLET PO PRN (16:26)
[2022-03-05] MEDS ORDERED: *HR* OxyCODONE/APAP 5/325 TABLET PO PRN (16:26)
[2022-03-05] MEDS ORDERED: Azithromycin 500 MG in 0.9 % Sodium Chloride 250 ML IVPB SCH (17:00)
[2022-03-05] MEDS: cefTRIAXone 1,000 MG in 0.9 % Sodium Chloride 10 ML IVP SCH (18:12)
[2022-03-05] MEDS: *HR* Rivaroxaban 10 MG TABLET PO SCH (18:18)
[2022-03-05] MEDS: Gabapentin 400 MG CAPSULE PO SCH (22:20)
[2022-03-06] MEDS: MetroNIDAZOLE 500 MG/100 ML 500 MG/100 ML BAG IVPB SCH ×3 (01:36→17:08)
[2022-03-06 05:44] LABS: Basophils % 0.4 %; Eosinophils % 0.4 %; Hematocrit 24.8 % (37.5-50.1); Hemoglobin 7.8 g/dL (12.9-16.9); Immature Granulocytes % 0.9 % (0-4); Lymphocytes # 1.5 K/mcL (0.6-4.6); Mean Corpuscular HGB Conc 31.5 g/dL (31.6-35.5); Mean Corpuscular Hemoglobin 32.1 pg (28.0-33.3); Mean Corpuscular Volume 102.1 fL (83.0-100.0); Mean Platelet Volume 9.7 fL (9.4-12.4); Monocytes # 0.4 K/mcL (0.0-1.3); Monocytes % 8.2 %; Neutrophils # 2.7 K/mcL (1.6-8.9); Platelet Count 144 K/mcL (140-400); Red Blood Count 2.43 M/mcL (4.19-5.50); Red Cell Distribution Width 19.2 % (11.5-14.5); Segmented Neutrophils % 58.1 %; White Blood Count 4.6 K/mcL (4.3-11.1)
[2022-03-06 05:50] LABS: Calcium 7.3 mg/dL (8.6-10.3); Potassium 4.2 mEq/L (3.5-5.1)
[2022-03-06] MEDS: Ringers Solution, Lactated 1,000 ML IVC SCH ×2 (09:46→09:48)
[2022-03-06] MEDS: polyethylene glycoL 3350 17 GM POWD.PACK PO SCH (09:53)
[2022-03-06] MEDS: Gabapentin 400 MG CAPSULE PO SCH ×3 (09:53→21:06)
[2022-03-06] MEDS: Metoprolol XL (24 HR) Succ 25 MG TAB.ER.24H PO SCH (09:54)
[2022-03-06] MEDS: Finasteride 5 MG TABLET PO SCH (09:54)
[2022-03-06] MEDS ORDERED: E-Z-HD (BARIUM SULF) SUSPENSION PO ONE (12:27)
[2022-03-06] MEDS ORDERED: E-Z-PAQUE (BARIUM SULF) SUSP 1 BOTTLE PO ONE (12:27)
[2022-03-06] MEDS: cefTRIAXone 1,000 MG in 0.9 % Sodium Chloride 10 ML IVP SCH (18:41)
[2022-03-06] MEDS: Azithromycin 250 MG TABLET PO SCH (18:46)
[2022-03-06] MEDS: *HR* Rivaroxaban 10 MG TABLET PO SCH (18:46)
[2022-03-07] MEDS: MetroNIDAZOLE 500 MG/100 ML 500 MG/100 ML BAG IVPB SCH ×2 (00:06→09:24)
[2022-03-07 02:18] LABS: Calcium 7.1 mg/dL (8.6-10.3)
[2022-03-07 05:11] LABS: Hematocrit 24.1 % (37.5-50.1); Hemoglobin 7.5 g/dL (12.9-16.9); Mean Corpuscular HGB Conc 31.1 g/dL (31.6-35.5); Mean Corpuscular Hemoglobin 31.6 pg (28.0-33.3); Mean Platelet Volume 9.3 fL (9.4-12.4); Platelet Count 141 K/mcL (140-400); Red Blood Count 2.37 M/mcL (4.19-5.50); Red Cell Distribution Width 19.4 % (11.5-14.5); White Blood Count 4.3 K/mcL (4.3-11.1)
[2022-03-07 05:12] LABS: Mean Corpuscular Volume 101.7 fL (83.0-100.0)
[2022-03-07] MEDS: polyethylene glycoL 3350 17 GM POWD.PACK PO SCH (09:24)
[2022-03-07] MEDS: Metoprolol XL (24 HR) Succ 25 MG TAB.ER.24H PO SCH (09:24)
[2022-03-07] MEDS: Finasteride 5 MG TABLET PO SCH (09:25)
[2022-03-07] MEDS: Gabapentin 400 MG CAPSULE PO SCH ×3 (09:25→19:49)
[2022-03-07] MEDS: metroNIDAZOLE 500 MG TABLET PO SCH (16:25)
[2022-03-07] MEDS: cefTRIAXone 1,000 MG in 0.9 % Sodium Chloride 10 ML IVP SCH (16:49)
[2022-03-07] MEDS: Azithromycin 250 MG TABLET PO SCH (16:49)
[2022-03-07] MEDS: *HR* Rivaroxaban 10 MG TABLET PO SCH (16:49)
[2022-03-08] MEDS: metroNIDAZOLE 500 MG TABLET PO SCH ×3 (01:01→16:53)
[2022-03-08 05:38] LABS: Hematocrit 25.9 % (37.5-50.1); Hemoglobin 8.1 g/dL (12.9-16.9); Mean Corpuscular HGB Conc 31.3 g/dL (31.6-35.5); Mean Corpuscular Hemoglobin 32.3 pg (28.0-33.3); Mean Corpuscular Volume 103.2 fL (83.0-100.0); Mean Platelet Volume 9.1 fL (9.4-12.4); Platelet Count 164 K/mcL (140-400); Red Blood Count 2.51 M/mcL (4.19-5.50); Red Cell Distribution Width 19.6 % (11.5-14.5); White Blood Count 4.5 K/mcL (4.3-11.1)
[2022-03-08 05:58] LABS: Calcium 7.6 mg/dL (8.6-10.3); Potassium 4.1 mEq/L (3.5-5.1)
[2022-03-08] MEDS: Finasteride 5 MG TABLET PO SCH (09:05)
[2022-03-08] MEDS: Metoprolol XL (24 HR) Succ 25 MG TAB.ER.24H PO SCH (09:05)
[2022-03-08] MEDS: polyethylene glycoL 3350 17 GM POWD.PACK PO SCH (09:06)
[2022-03-08] MEDS: Gabapentin 400 MG CAPSULE PO SCH ×3 (09:08→20:58)
[2022-03-08] MEDS: Cefdinir 300 MG CAPSULE PO SCH ×2 (11:27→20:58)
[2022-03-08] MEDS: *HR* Rivaroxaban 10 MG TABLET PO SCH (16:53)
[2022-03-08] MEDS: Azithromycin 250 MG TABLET PO SCH (16:53)
[2022-03-09] MEDS: metroNIDAZOLE 500 MG TABLET PO SCH ×3 (01:25→16:29)
[2022-03-09] MEDS: polyethylene glycoL 3350 17 GM POWD.PACK PO SCH (08:09)
[2022-03-09] MEDS: Finasteride 5 MG TABLET PO SCH (08:10)
[2022-03-09] MEDS: Metoprolol XL (24 HR) Succ 25 MG TAB.ER.24H PO SCH (08:10)
[2022-03-09] MEDS: Cefdinir 300 MG CAPSULE PO SCH ×2 (08:10→21:13)
[2022-03-09] MEDS: Gabapentin 400 MG CAPSULE PO SCH ×3 (08:10→21:14)
[2022-03-09] MEDS: *HR* Rivaroxaban 10 MG TABLET PO SCH (16:29)
[2022-03-09] MEDS: Azithromycin 250 MG TABLET PO SCH (16:29)
[2022-03-10] MEDS: metroNIDAZOLE 500 MG TABLET PO SCH ×2 (00:14→09:06)
[2022-03-10] MEDS: Gabapentin 400 MG CAPSULE PO SCH ×2 (09:06→14:58)
[2022-03-10] MEDS: Metoprolol XL (24 HR) Succ 25 MG TAB.ER.24H PO SCH (09:06)
[2022-03-10] MEDS: Finasteride 5 MG TABLET PO SCH (09:06)
[2022-03-10] MEDS: polyethylene glycoL 3350 17 GM POWD.PACK PO SCH (09:06)
[2022-03-10] MEDS: Cefdinir 300 MG CAPSULE PO SCH (09:06)
[2022-03-10 11:20] VITALS: BP 136/75; PULSE 88; TEMP 98.5; O2SAT 95
[2022-03-10 13:25] LABS: Adenovirus Not Detected (Not Detect); Coronavirus 229E Not Detected (Not Detect); Coronavirus HKU1 Not Detected (Not Detect); Coronavirus NL63 Not Detected (Not Detect); Coronavirus OC43 Not Detected (Not Detect); Human Metapneumovirus Not Detected (Not Detect); Human Rhinovirus/Enterovirus Not Detected (Not Detect); Influenza A Subtype 2009 H1 Not Detected (Not Detect); SARS-CoV-2 Not Detected (Not Detect)
[2022-03-10 13:26] LABS: Bordetella Pertussis Not Detected (Not Detect); Chlamydophila pneumoniae Not Detected (Not Detect); Influenza B Not Detected (Not Detect); Mycoplasma pneumoniae Not Detected (Not Detect); Parainfluenza Virus 1 Not Detected (Not Detect); Parainfluenza Virus 2 Not Detected (Not Detect); Parainfluenza Virus 3 Not Detected (Not Detect); Parainfluenza Virus 4 Not Detected (Not Detect); Respiratory Syncytial Virus Not Detected (Not Detect)
== END 2022-03-10 15:45 | DRG 391 ==
LOC: 3ANU 11:31 → EMEROOARM 11:31 → SUATTDRO 17:45 → 3ANU 20:20
PROVIDERS: ADMIT Internal Medicine; ATTEND Internal Medicine